=== PATIENT | male | born 1945 | race Caucasian/White ===

== ENCOUNTER 2018-08-31 13:53 | Inpatient (IN) ==
[2018-08-31 14:38] LABS: Baso % (Auto) 0.3 % (0.0-2.0); Eos % (Auto) 0.1 % (0.0-4.0); Hemoglobin 15.4 gm/dL (13.0-17.0); Lymph # (Auto) 0.9 th/mm3 (1.0-4.8); Lymph % (Auto) 9.1 % (9.0-44.0); Mean Corpuscular HGB Conc 35.8 % (32.0-36.0); Mean Corpuscular Hemoglobin 34.4 pg (27.0-34.0); Mean Corpuscular Volume 96.1 fL (80.0-100.0); Mean Platelet Volume 8.1 fL (7.0-11.0); Mono # (Auto) 1.2 th/mm3 (0.0-0.9); Mono % (Auto) 11.9 % (0.0-8.0); Neut # (Auto) 7.7 th/mm3 (1.8-7.7); Neut % (Auto) 78.6 % (16.0-70.0); Platelet Count 212 th/mm3 (150-450); Red Blood Count 4.48 mil/mm3 (4.50-5.90); Red Cell Distribution Width 12.5 % (11.6-17.2); White Blood Count 9.8 th/mm3 (4.0-11.0)
--- NOTE | 2018-08-31 14:45 | ED ---
HPI General Chief Complaint: Extremity Injury, Lower Stated Complaint: hip pain Time Seen by Provider: 08/31/18 13:59 Source: patient and EMS Mode of arrival: EMS Limitations: no limitations History of Present Illness HPI Narrative: 72-year-old male the presents to the ED for evaluation of fall and pain on the right hip as well as on the right elbow after he had a fall 2 days ago. Per patient he has not been able to get up on his own and this is what concerned him. Apparently 1 of his friends did help him into his house and he has been on a couch since. He denies any chest pain or shortness of breath. He states that he did not hit his head or lose consciousness. Denies take any blood thinners. No urinary bowel movement issues. He states that the main reason he came today is because his friend recommended that he comes here because he cannot walk. No previous injuries. Only history is high blood pressure. Has not eaten anything in 2 days per patient. States that his pain currently is 2 out of 10 but if he moves especially his hip he gets 10 out of 10 pain. He cannot put weight on his hip. Denies any back pain or neck pain. Patient is was a mechanical fall. Per patient he tripped and fell into his right side. He denies losing consciousness. Related Data Allergies Allergy/AdvReac Type Severity Reaction Status Date / Time No Known Allergies Allergy Verified 08/31/18 14:08 Review of Systems ROS: all other systems reviewed are negative [facility] Medical History Medical History GERD (gastroesophageal reflux disease) (Acute) HTN (hypertension) (Acute) Surgical History Surgical History History of right knee surgery (Acute) Social History Social History Substance History: No History of Abuse Smoking Status: Current every day smoker Tobacco Type: Cigarettes How Often Do You Have a Drink Containing Alcohol: 2 to 4 times a month Recent Travel in [facility] within the Last 8 Weeks: No Recent Out of Country Travel within the Last 8 Weeks: No Immunization History Tetanus Immunization: <5 Years Exam Narrative Exam Narrative: GENERAL: Well appearing SKIN: Focused skin assessment warm/dry. HEAD: Atraumatic. Normocephalic. EYES: Pupils equal and round. No scleral icterus. No injection or drainage. ENT: No nasal bleeding or discharge. Mucous membranes pink and moist. Tongue is midline. No uvula deviation. NECK: Trachea midline. No JVD. CARDIOVASCULAR: Regular rate and rhythm. No murmur appreciated. RESPIRATORY: No accessory muscle use. Clear to auscultation. Breath sounds equal bilaterally. GASTROINTESTINAL: Abdomen soft, non-tender, nondistended. Hepatic and splenic margins not palpable. MUSCULOSKELETAL: No obvious deformities. No clubbing. No cyanosis. No edema. Full range of motion of all extremities. Patient does have pain and swelling noted on the right elbow and olecranon area. Bruising noted. 2+ pulses bilaterally in the upper and lower extremities bilaterally. No lumbar, thoracic , cervical spine tenderness to palpation pain or rib pain. Scapular pain. No hip pain other than on the right hip where patient has pain with any movement of the right hip especially with weightbearing. Sensation intact bilaterally. NEUROLOGICAL: Awake and alert. No obvious cranial nerve deficits. Motor grossly within normal limits. Normal speech. PSYCHIATRIC: Appropriate mood and affect; insight and judgment normal. Course Initial Documented Vital Signs Temperature 98.4 F 08/31/18 14:02 Pulse Rate 87 08/31/18 14:02 Respiratory Rate 20 08/31/18 14:02 Blood Pressure 135/82 08/31/18 14:02 Pulse Oximetry 93 L 08/31/18 14:02 Last Documented Vital Signs Temperature 98.4 F 08/31/18 14:02 Pulse Rate 87 08/31/18 14:02 Respiratory Rate 20 08/31/18 14:02 Blood Pressure 135/82 08/31/18 14:02 Pulse Oximetry 93 L 08/31/18 14:02 Medical Decision Making [facility] Narrative Medical decision making narrative: 72-year-old male who presents to the ED for a fall. Patient was properly examined and was found to have signs and symptoms consistent with appears to be fractures. X-rays and labs ordered. X-rays and labs were positive for what appears to be acetabulum fracture as well as right elbow fracture. Case discussed with my attending who agrees with plan. Case discussed with Dr. Bright who wants patient admitted to medicine, CT of the hip and splint for the right elbow. Patient will have surgery on his right elbow and possibly on his hip only if the CT shows significant injury. Patient might not have surgery on his hip but depends on what the CT shows. Labs and preop work was ordered. Patient was admitted to Dr. Castro who agrees to admission. Medical Screen Exam Complete: Yes Emergency Medical Condition: Yes Differential Diagnosis Differential Diagnosis: Fracture versus bruise versus contusion Medical Records Medical records reviewed: Yes I reviewed the patient's medical records. Lab Data Lab results reviewed: Yes I reviewed the patient's lab results. Result diagrams: 08/31/18 14:11 08/31/18 14:11 Lab Results 08/31/18 08/31/18 08/31/18 Range/Units 14:11 14:11 14:11 WBC 9.8 (4.0-11.0) th/mm3 RBC 4.48 L (4.50-5.90) mil/mm3 Hgb 15.4 (13.0-17.0) gm/dL Hct 43.0 (39.0-51.0) % MCV 96.1 (80.0-100.0) fL MCH 34.4 H (27.0-34.0) pg MCHC 35.8 (32.0-36.0) % RDW 12.5 (11.6-17.2) % Plt Count 212 (150-450) th/mm3 MPV 8.1 (7.0-11.0) fL Neut % (Auto) 78.6 H (16.0-70.0) % Lymph % (Auto) 9.1 (9.0-44.0) % Griggs % (Auto) 11.9 H (0.0-8.0) % Eos % (Auto) 0.1 (0.0-4.0) % Baso % (Auto) 0.3 (0.0-2.0) % Neut # (Auto) 7.7 (1.8-7.7) th/mm3 Lymph # (Auto) 0.9 L (1.0-4.8) th/mm3 Griggs # (Auto) 1.2 H (0.0-0.9) th/mm3 Eos # (Auto) 0.0 (0.0-0.4) th/mm3 Baso # (Auto) 0.0 (0.0-0.2) th/mm3 WBC Differential . Differential Comment Auto diff final PT 11.1 (9.8-11.6) sec INR 1.1 Ratio APTT 28.5 (24.3-30.1) sec Sodium 129 L (136-145) meq/L Potassium 3.8 (3.5-5.1) meq/L Chloride 89 L (98-107) meq/L Carbon Dioxide 29.3 (21.0-32.0) meq/L Anion Gap 11 (5-15) meq/L BUN 13 (7-18) mg/dL Creatinine 0.95 (0.60-1.30) mg/dL Estimated GFR 78 L (>89) mL/min Random Glucose 124 H (74-106) mg/dL Calcium 8.3 L (8.5-10.1) mg/dL Imaging Data Attestation: I personally reviewed and interpreted this imaging study as follows : Radiologist's impression: Elbow X-Ray 08/31/18 14:00 CONCLUSION: Avulsion fracture of the posterior olecranon Femur X-Ray 08/31/18 14:00 CONCLUSION: See the hip reported separately. The femur is intact. Hip X-Ray 08/31/18 14:00 CONCLUSION: Acute acetabular fracture with acetabular protrusio. Discharge Plan Discharge Disposition Patient Disposition: 30 Still Patient Discharge Details Diagnosis: Closed olecranon fracture, Acetabulum fracture Physicians Team ED Provider: Triston Durant ED Midlevel Provider: Nelson Hopper Primary Care Provider: Jewell Chance Status ED Status: Admitted Patient
--- NOTE | 2018-08-31 15:00 | XR ---
EXAM DATE: 08/31/2018 2:00 PM EDT AGE/SEX: 72 years / Male INDICATIONS: Fell yesterday. CLINICAL DATA: This is the patient's initial encounter. Patient reports that signs and symptoms have been present for 1 day and indicates a pain score of 7/10. MEDICAL/SURGICAL HISTORY: . none known poor historian . none known poor historian COMPARISON: No prior exams available for comparison. FINDINGS: Views of the right elbow demonstrates displaced olecranon fracture with a gap in between the fracture fragments of 15 mm. Large joint effusion and soft tissue swelling CONCLUSION: Avulsion fracture of the posterior olecranon Electronically signed by: Josafat East MD 08/31/2018 2:59 PM EDT
--- NOTE | 2018-08-31 15:05 | XR ---
EXAM DATE: 08/31/2018 2:00 PM EDT AGE/SEX: 72 years / Male INDICATIONS: Fell yesterday. CLINICAL DATA: This is the patient's initial encounter. Patient reports that signs and symptoms have been present for 1 day and indicates a pain score of 7/10. MEDICAL/SURGICAL HISTORY: . none known poor historian . none known poor historian COMPARISON: No prior exams available for comparison. FINDINGS: 3 views of the pelvis and right hip reveal an acute fracture involving the acetabulum with acetabular protrusio. Femoral neck and head are intact. Femoral head remains within the acetabulum. Atheroscler otic calcifications are noted. Underlying osteopenia noted. CONCLUSION: Acute acetabular fracture with acetabular protrusio. Electronically signed by: Daniele Zamudio MD 08/31/2018 3:04 PM EDT
--- NOTE | 2018-08-31 15:08 | XR ---
EXAM DATE: 08/31/2018 2:00 PM EDT AGE/SEX: 72 years / Male INDICATIONS: Fell yesterday. CLINICAL DATA: This is the patient's initial encounter. Patient reports that signs and symptoms have been present for 1 day and indicates a pain score of 7/10. MEDICAL/SURGICAL HISTORY: . none known poor historian . poor historian COMPARISON: [facility] [place], HIP RIGHT W AP PELVIS 2V, 08/31/2018. . FINDINGS: See the right hip reported separately. The femur is intact and in normal alignment. Osseous density i s normal. Soft tissues are unremarkable. Atherosclerotic calcifications. Osteoarthritis involving th e knee. No radiopaque foreign bodies seen. CONCLUSION: See the hip reported separately. The femur is intact. Electronically signed by: Daniele Zamudio MD 08/31/2018 3:06 PM EDT
[2018-08-31 15:11] LABS: Calcium 8.3 mg/dL (8.5-10.1); Carbon Dioxide 29.3 meq/L (21.0-32.0); Potassium 3.8 meq/L (3.5-5.1)
[2018-08-31 15:25] LABS: Activated Partial Thrombo Time 28.5 sec (24.3-30.1); INR 1.1 Ratio; Prothrombin Time 11.1 sec (9.8-11.6)
[2018-08-31] MEDS ORDERED: Morphine Inj 4 MG/ML Vial IV.PUSH ONE (15:40)
[2018-08-31] MEDS ORDERED: Morphine Inj 4 MG/ML Vial IV.PUSH PRN (15:43)
[2018-08-31] MEDS ORDERED: Naloxone Inj 0.4 MG/ML Vial IV.PUSH PRN (15:43)
[2018-08-31] MEDS ORDERED: Acetaminophen 325 MG Tablet PO PRN (15:43)
[2018-08-31] MEDS ORDERED: Morphine Sulfate Inj 2 MG/ML Vial IV.PUSH PRN (15:43)
[2018-08-31] MEDS ORDERED: Bisacodyl 10 MG Supp RECTAL PRN (15:43)
--- NOTE | 2018-08-31 16:16 | XR ---
EXAM DATE: 08/31/2018 3:30 PM EDT AGE/SEX: 72 years / Male INDICATIONS: Evaluate for pneumonia, pneumothorax, or communicable diseases. CLINICAL DATA: This is the patient's initial encounter. Patient reports that signs and symptoms have been present for 1 day and indicates a pain score of 0/10. MEDICAL/SURGICAL HISTORY: None. None. COMPARISON: No prior exams available for comparison. FINDINGS: 2 frontal views of the chest demonstrate the lungs to be symmetrically aerated without evidence of ma ss, infiltrate or effusion. The lungs are hyperaerated. The cardiomediastinal contours are unremarka ble. Scoliotic curvature. Osseous structures are intact. CONCLUSION: The lungs are hyperinflated consistent with COPD. No acute infiltrate or effusion. Electronically signed by: Daniele Zamudio MD 08/31/2018 4:15 PM EDT
--- NOTE | 2018-08-31 16:36 | P.HPIM ---
History of Present Illness Primary Care Physician: Jewell Chance MD Chief Complaint: I fell with right hip and elbow pain History of Present Illness: 72-year-old white male with a history of hypertension, GERD presents to the emergency room due to difficulty ambulating since his fall 2 days ago. Apparently he was walking outside in a joan of wind caused him to lose his balance and falling to his right side. He states that he did not hit his head nor lose consciousness. Since the fall, he had significant pain over his right elbow and right hip. Due to the fact that he continues to have a difficult time ambulating and having intractable pain, his friend brought him to emergency room today. He reports no complaints of chest pain shortness of breath. He does not struggle with constipation. He does report chronic runny nose. He has been told by his primary care physician in the past that he may have early stages of COPD however he does not use an inhaler. - Diagnosis (1) Acetabulum fracture (2) Fracture, olecranon Inpatient Certification: I certify that the inpatient services were ordered in accordance with Medicare regulations governing the order. This includes certification that hospital inpatient services are reasonable and necessary and in the case of services not specified as inpatient-only under 42 CFR 419.22(n), that they are appropriately provided as inpatient services in accordance to with the 2-midnight benchmark under 43 CFR 412.3(e) Estimated Total Length of Stay (Days): 3 Plans for Post Hospital Care: SNF Review of Systems All other systems reviewed negative except as stated in HPI PMFSH - History History Provided By: Patient, Dental Technologist / EMT - Medical History Medical History: Medical History (Last Reviewed 08/31/18 @ 17:18 by Florida Castro MD) GERD (gastroesophageal reflux disease) HTN (hypertension) - Surgical History Surgical History: Surgical History (Last Updated 08/31/18 @ 17:20 by Florida Castro MD) History of ankle surgery History of right knee surgery - Family History Family History: Family History (Last Updated 08/31/18 @ 17:20 by Florida Castro MD) Other Family history unknown - Social History I have reviewed the patient's Social History: Yes - Tobacco History Tobacco Use In Past 30 Days: Yes Smoking Status: Current every day smoker Tobacco Type: Cigarettes - Alcohol History How Often Do You Have a Drink Containing Alcohol: 2 to 4 times a month - Substance Use History Substance History: No History of Abuse - Travel History Recent Travel in the [place] Within the Last 8 Weeks: No Recent Travel Out of the Country Within the Last 8 Weeks: No - Immunization History Tetanus Immunization: <5 Years Medications and Allergies Active Medications: Active Medications Acetaminophen (Tylenol) 650 mg PO Q6HR PRN PRN Reason: PAIN SCALE 1 TO 2 Hydrocodone Bitart/Acetaminophen (Fowler 5/325) 1 tab PO Q4H PRN PRN Reason: PAIN SCALE 3 TO 5 Hydrocodone Bitart/Acetaminophen (Fowler 7.5/325) 1 tab PO Q4H PRN PRN Reason: PAIN SCALE 6 TO 10 Al Hydroxide/Mg Hydroxide (Milk Of Magnesia Liq) 30 ml PO Q12H PRN PRN Reason: Mild Constipation Amlodipine Besylate (Norvasc) 5 mg PO DAILY CARLOS Bisacodyl (Dulcolax Supp) 10 mg RECTAL DAILY PRN PRN Reason: SEVERE CONSITIPATION Calcium/Vitamin D (Oscal With D 250/125 Mg) 1 tab PO BID [facility] Enalaprilat (Vasotec Inj) 1.25 mg IV.PUSH Q6H PRN PRN Reason: SEE LABEL COMMENTS Lactated Ringer's (Lr 1000 Ml Inj) 1,000 mls @ 70 mls/hr IV.CONT .[id number] CARLOS Lactulose (Lactulose Liq) 30 ml PO DAILY PRN PRN Reason: SEVERE CONSITIPATION Metoprolol Tartrate (Lopressor) 25 mg PO BID [facility] Morphine Sulfate (Morphine Inj) 4 mg IV.PUSH Q3H PRN PRN Reason: PAIN 6-10;IF UNABLE TO TAKE PO Morphine Sulfate (Morphine Inj) 2 mg IV.PUSH Q3H PRN PRN Reason: PAIN 3-5; IF UABLE TO TAKE PO Naloxone HCl (Narcan Inj) 0.4 mg IV.PUSH UNSCH PRN PRN Reason: SEE LABEL COMMENTS Non-Formulary Medication (Omeprazole [Omeprazole]) 20 mg PO DAILY [facility] Ondansetron HCl (Zofran Inj) 4 mg IV.PUSH Q6H PRN PRN Reason: NAUSEA OR VOMITING Senna/Docusate Sodium (Angela-Colace) 1 tab PO BID [facility] Sennosides (Senokot) 17.2 mg PO Q12H PRN PRN Reason: Moderate Constipation Allergies Allergy/AdvReac Type Severity Reaction Status Date / Time No Known Allergies Allergy Verified 08/31/18 14:08 Home Medications Medication Instructions Recorded Confirmed Type amlodipine 5 mg PO DAILY 08/31/18 08/31/18 History metoprolol tartrate 25 mg PO BID 08/31/18 08/31/18 History omeprazole 20 mg PO DAILY 08/31/18 08/31/18 History Exam Vital signs: Vital Signs 08/31/18 14:02 Temperature 98.4 F Pulse Rate 87 Respiratory Rate 20 Blood Pressure 135/82 Pulse Oximetry 93 L Intake & Output 08/30/18 08/31/18 08/31/18 18:59 06:59 18:59 Weight 68.039 kg Narrative: GENERAL: Well-nourished well-developed white male no acute distress SKIN: Warm and dry. HEAD: Atraumatic. Normocephalic. EYES: Pupils equal and round. No scleral icterus. No injection or drainage. ENT: No nasal bleeding or discharge. Mucous membranes pink and moist. NECK: Trachea midline. No JVD. CARDIOVASCULAR: Regular rate and rhythm. RESPIRATORY: No accessory muscle use. Clear to auscultation. Breath sounds equal bilaterally. GASTROINTESTINAL: Abdomen soft, non-tender, nondistended. Hepatic and splenic margins not palpable. MUSCULOSKELETAL: Extremities without clubbing, cyanosis, with trace bilateral ankle edema, right upper arm stabilized in the splint with bandage clean dry and intact. NEUROLOGICAL: Awake and alert. No obvious cranial nerve deficits. Motor grossly within normal limits. Normal speech. PSYCHIATRIC: Appropriate mood and affect; insight and judgment normal. Results - Labs CBC & Chem 7: 09/02/18 06:53 09/02/18 06:53 Labs: Short CBC 08/31/18 Range/Units 14:11 WBC 9.8 (4.0-11.0) th/mm3 Hgb 15.4 (13.0-17.0) gm/dL Hct 43.0 (39.0-51.0) % Plt Count 212 (150-450) th/mm3 BMP 08/31/18 14:11 Sodium 129 L Potassium 3.8 Chloride 89 L Carbon Dioxide 29.3 BUN 13 Creatinine 0.95 Calcium 8.3 L - Imaging Impressions Elbow X-Ray 08/31/18 14:00 CONCLUSION: Avulsion fracture of the posterior olecranon Femur X-Ray 08/31/18 14:00 CONCLUSION: See the hip reported separately. The femur is intact. Hip X-Ray 08/31/18 14:00 CONCLUSION: Acute acetabular fracture with acetabular protrusio. Chest X-Ray 08/31/18 15:30 CONCLUSION: The lungs are hyperinflated consistent with COPD. No acute infiltrate or effusion. - ECG Attestation: I personally reviewed and interpreted this ECG as follows: Prior ECG tracings: not available for review Interpretation: Normal sinus rhythm with few PVC with heart rate Caprini VTE Risk Assessment Caprini VTE Risk Assessment: Moderate/High Risk (score >= 2) Caprini Risk Assessment Model: Point Value = 1 Point Value = 2 Point Value = 3 Point Value = 5 Age 41-60 Minor surgery BMI > 25 kg/m2 Swollen legs Varicose veins or History of unexplained or recurrent spontaneous Oral contraceptives or hormone replacement Sepsis (< 1 month) Serious lung disease, including pneumonia (< 1 month) Abnormal pulmonary function Acute myocardial infarction Congestive heart failure (< 1 month) History of inflammatory bowel disease Medical patient at bed rest Age 61-74 Arthroscopic surgery Major open surgery (> 45 min) Laparoscopic surgery (> 45 min) Malignancy Confined to bed (> 72 hours) Immobilizing plaster cast Central venous access Age >= 75 History of VTE Family history of VTE Factor V Leiden Prothrombin [id number] Lupus anticoagulant Anticardiolipin antibodies Elevated serum homocysteine Heparin-induced thrombocytopenia Other congenital or acquired thrombophilia Stroke (< 1 month) Elective arthroplasty Hip, pelvis, or leg fracture Acute spinal cord injury (< 1 month) Prophylaxis Regimen: Total Risk Factor Score Risk Level Prophylaxis Regimen 0-1 Low Early ambulation 2 Moderate Order ONE of the following: *Sequential Compression Device (SCD) *Heparin 5000 units SQ BID 3-4 Higher Order ONE of the following medications: *Heparin 5000 units SQ TID *Enoxaparin/Lovenox 40 mg SQ daily (WT < 150 kg, CrCl > 30 mL/min) *Enoxaparin/Lovenox 30 mg SQ daily (WT < 150 kg, CrCl > 10-29 mL/min) *Enoxaparin/Lovenox 30 mg SQ BID (WT < 150 kg, CrCl > 30 mL/min) AND/OR *Sequential Compression Device (SCD) 5 or more Highest Order ONE of the following medications: *Heparin 5000 units SQ TID (Preferred with Epidurals) *Enoxaparin/Lovenox 40 mg SQ daily (WT < 150 kg, CrCl > 30 mL/min) *Enoxaparin/Lovenox 30 mg SQ daily (WT < 150 kg, CrCl > 10-29 mL/min) *Enoxaparin/Lovenox 30 mg SQ BID (WT < 150 kg, CrCl > 30 mL/min) AND *Sequential Compression Device (SCD) Assessment and Plan - Assessment (1) Acetabulum fracture Code(s): S32.409A - Unspecified fracture of unspecified acetabulum, initial encounter for closed fracture Status: Acute (2) Fracture, olecranon Code(s): S52.023A - Displaced fracture of olecranon process without intraarticular extension of unspecified ulna, initial encounter for closed fracture Status: Acute - Plan 72-year-old white male with a history of hypertension and GERD presents after mechanical fall 1. Right displaced olecranon closed fracture-orthopedic consult for likely surgical intervention. N.p.o. after midnight. Continue with IV morphine as needed for pain. Start Os-Fam with vitamin D for presumed osteoporosis 2. Right acetabular fractureorthopedic consultation, likely nonsurgical; activity level as per orthopedic surgery with physical therapy. 3. Hypertension, essential chronicresume home Norvasc 4. GERDresume home PPI 5. DVT prophylaxisbilateral SCDs, anticoagulation on hold due to likely surgical intervention. 6. Tobacco abuse with probable early COPD-cessation counseling, encourage incentive spirometry use, DuoNeb as needed.
--- NOTE | 2018-08-31 16:45 | CT ---
EXAM DATE: 08/31/2018 3:47 PM EDT AGE/SEX: 72 years / Male INDICATIONS: Trauma; fall, right hip pain, difficulty ambulating. CLINICAL DATA: This is the patient's initial encounter. Patient reports that signs and symptoms have been present for 1 day and indicates a pain score of 9/10. MEDICAL/SURGICAL HISTORY: Hypertension. None. RADIATION DOSE: 24.24 CTDI (mGy) COMPARISON: No prior exams available for comparison. TECHNIQUE: Multiple contiguous axial images were acquired using a multirow detector CT scanner witho ut contrast. Multiplanar reconstruction was performed in the sagittal and coronal planes. Using aut omated exposure control and adjustment of the mA and/or kV according to patient size, radiation dose was kept as low as reasonably achievable to obtain optimal diagnostic quality images. DICOM format i mage data is available electronically for review and comparison. FINDINGS: An acute comminuted fractures seen involving the anterior aspect of the acetabulum with resulting la tabular protrusio. The femoral head and neck are intact. There is stranding of the fat planes within the right hemipelvis and within the presacral space consistent with small volume hemorrhage. Small vo lume hemarthrosis also noted. A degenerative lower lumbar spine. . Calcified plaque involving the low er abdominal aorta and inflow vessels. Bowel structures are unremarkable. CONCLUSION: 1. Comminuted acetabular fracture with acetabular protrusio, small volume hemarthrosis, and small vo lume hemorrhage within the pelvis. Electronically signed by: Daniele Zamudio MD 08/31/2018 4:43 PM EDT
--- NOTE | 2018-08-31 20:04 | ECG ---
Date Performed: 08/31/2018 Time Performed: 15:58:41 PTAGE: 72 years EKG: Sinus rhythm WITH OCCASIONAL SUPRAVENTRICULAR PREMATURE COMPLEXES NONSPECIFIC ST ABNORMALITY ABNORMAL ECG NO PREVIOUS TRACING DOCTOR: Gregory Esteves Interpretating Date/Time 08/31/2018 20:02:42
[2018-08-31] MEDS: Metoprolol Tartrate 25 MG Tablet PO SCH (21:54)
[2018-08-31] MEDS: Senna/Docusate Sodium 8.6/50 MG Tablet PO SCH (21:55)
[2018-08-31] MEDS: Calcium/Vitamin D 250/125 MG Tablet PO SCH (21:55)
[2018-09-01] MEDS ORDERED: Chlorhexidine Gluconate 2% 1 Pack (2 Cloths) TOPICAL ONE (02:46)
[2018-09-01] MEDS ORDERED: Metoprolol Tartrate 25 MG Tablet PO ONE (02:46)
[2018-09-01] MEDS ORDERED: Sodium Chlor 0.9% Inj 500 ML IV.SIG SCH (03:00)
[2018-09-01] MEDS: Metoprolol Tartrate 25 MG Tablet PO SCH ×2 (08:10→20:11)
[2018-09-01] MEDS: Pantoprazole Sodium 20 MG DR Tablet PO SCH (08:10)
[2018-09-01] MEDS: amLODIPine 5 MG Tablet PO SCH (08:10)
[2018-09-01] MEDS: Senna/Docusate Sodium 8.6/50 MG Tablet PO SCH ×2 (08:19→20:13)
[2018-09-01] MEDS: Calcium/Vitamin D 250/125 MG Tablet PO SCH ×2 (08:19→20:11)
--- NOTE | 2018-09-01 08:37 | P.CONOP ---
[facility] Orthopedics Consult Note - [facility] Consult date: 09/01/18 Requesting physician: Florida Castro Consult reason: fracture Chief complaint: right acetabular fracture, right acetabulum Narrative: 72-year-old white male with a history of hypertension, GERD presents to the emergency room due to difficulty ambulating since his fall 2 days ago. Apparently he was walking outside in a joan of wind caused him to lose his balance and falling to his right side. He states that he did not hit his head nor lose consciousness. Since the fall, he had significant pain over his right elbow and right hip. Due to the fact that he continues to have a difficult time ambulating and having intractable pain, his friend brought him to emergency room today. He reports no complaints of chest pain shortness of breath. He does not struggle with constipation. He does report chronic runny nose. He has been told by his primary care physician in the past that he may have early stages of COPD however he does not use an inhaler. X-ray and CT of the pelvis shows evidence of an impacted bicondylar acetabular fracture which is predominantly a central dye punch with fairly stable anterior and posterior column. This has the appearance of protrusio which is rated as mild. X-ray of the right elbow shows evidence of a displaced two-part olecranon fracture. I have been asked to see the patient in consultation regarding the same Review of Systems All other systems reviewed negative except as stated in [facility] PMF[facility] - History History Provided By: Patient - Medical History Medical History: Medical History (Last Reviewed 08/31/18 @ 17:18 by Florida Castro MD) GERD (gastroesophageal reflux disease) HTN (hypertension) - Surgical History Surgical History: Surgical History (Last Updated 08/31/18 @ 17:20 by Florida Castro MD) History of ankle surgery History of right knee surgery - Family History Family History: Family History (Last Updated 08/31/18 @ 17:20 by Florida Castro MD) Other Family history unknown - Tobacco History Second Hand Smoke Exposure: No Tobacco Use In Past 30 Days: Yes Smoking Status: Current some day smoker Tobacco Type: Cigarettes - Alcohol History How Often Do You Have a Drink Containing Alcohol: 2 to 3 times a week - Substance Use History Substance History: No History of Abuse - Travel History Recent Travel in the [place] Within the Last 8 Weeks: No Recent Travel Out of the Country Within the Last 8 Weeks: No - Immunization History Tetanus Immunization: <5 Years Hx Influenza Vaccine This Season: No Medications and Allergies Active Medications: Active Medications Acetaminophen (Tylenol) 650 mg PO Q6HR PRN PRN Reason: PAIN SCALE 1 TO 2 Hydrocodone Bitart/Acetaminophen (Waterproof 5/325) 1 tab PO Q4H PRN PRN Reason: PAIN SCALE 3 TO 5 Last Admin: 09/01/18 02:35 Dose: 1 tab Hydrocodone Bitart/Acetaminophen (Waterproof 7.5/325) 1 tab PO Q4H PRN PRN Reason: PAIN SCALE 6 TO 10 Al Hydroxide/Mg Hydroxide (Milk Of Magnesia Liq) 30 ml PO Q12H PRN PRN Reason: Mild Constipation Albuterol (Duoneb Neb (Prn)) 1 ampul NEB Q4HR NEB PRN PRN Reason: sob Amlodipine Besylate (Norvasc) 5 mg PO DAILY COUNTS INCLUDE 234 BEDS AT THE [facility] Last Admin: 09/01/18 08:10 Dose: 5 mg Bisacodyl (Dulcolax Supp) 10 mg RECTAL DAILY PRN PRN Reason: SEVERE CONSITIPATION Calcium/Vitamin D (Oscal With D 250/125 Mg) 1 tab PO BID COUNTS INCLUDE 234 BEDS AT THE [facility] Last Admin: 09/01/18 08:19 Dose: Not Given Enalaprilat (Vasotec Inj) 1.25 mg IV.PUSH Q6H PRN PRN Reason: SEE LABEL COMMENTS Lactated Ringer's (Lr 1000 Ml Inj) 1,000 mls @ 70 mls/hr IV.CONT .[id number] COUNTS INCLUDE 234 BEDS AT THE [facility] Last Admin: 08/31/18 17:10 Dose: 70 mls/hr Lactated Ringer's (Lr 1000 Ml Inj) 1,000 mls @ 30 mls/hr IV.SIG .Q24H COUNTS INCLUDE 234 BEDS AT THE [facility] Stop: 09/02/18 02:59 Sodium Chloride (Ns Inj) 500 mls @ 30 mls/hr IV.SIG .Q10H COUNTS INCLUDE 234 BEDS AT THE [facility] Influenza Virus Vaccine (Fluarix (Quad) Vaccine Inj) 0.5 ml IM .ONCE ONE Stop: 09/01/18 09:01 Lactulose (Lactulose Liq) 30 ml PO DAILY PRN PRN Reason: SEVERE CONSITIPATION Metoprolol Tartrate (Lopressor) 25 mg PO BID COUNTS INCLUDE 234 BEDS AT THE [facility] Last Admin: 09/01/18 08:10 Dose: 25 mg Morphine Sulfate (Morphine Inj) 4 mg IV.PUSH Q3H PRN PRN Reason: PAIN 6-10;IF UNABLE TO TAKE PO Morphine Sulfate (Morphine Inj) 2 mg IV.PUSH Q3H PRN PRN Reason: PAIN 3-5; IF UABLE TO TAKE PO Naloxone HCl (Narcan Inj) 0.4 mg IV.PUSH UNSCH PRN PRN Reason: SEE LABEL COMMENTS Ondansetron HCl (Zofran Inj) 4 mg IV.PUSH Q6H PRN PRN Reason: NAUSEA OR VOMITING Pantoprazole Sodium (Protonix) 20 mg PO DAILY COUNTS INCLUDE 234 BEDS AT THE [facility] Last Admin: 09/01/18 08:10 Dose: 20 mg Senna/Docusate Sodium (Angela-Colace) 1 tab PO BID COUNTS INCLUDE 234 BEDS AT THE [facility] Last Admin: 09/01/18 08:19 Dose: Not Given Sennosides (Senokot) 17.2 mg PO Q12H PRN PRN Reason: Moderate Constipation Allergies Allergy/AdvReac Type Severity Reaction Status Date / Time No Known Allergies Allergy Verified 08/31/18 14:08 Home Medications Medication Instructions Recorded Confirmed Type amlodipine 5 mg PO DAILY 08/31/18 08/31/18 History metoprolol tartrate 25 mg PO BID 08/31/18 08/31/18 History omeprazole 20 mg PO DAILY 08/31/18 08/31/18 History Exam Vital signs: Vital Signs 08/31/18 14:02 08/31/18 16:43 08/31/18 16:44 Temperature 98.4 F Pulse Rate 87 88 Respiratory Rate 20 18 Blood Pressure 135/82 112/75 Pulse Oximetry 93 L 95 95 08/31/18 20:00 09/01/18 00:00 09/01/18 01:30 Temperature 97.9 F 98.3 F Pulse Rate 91 H 96 H Respiratory Rate 18 20 17 Blood Pressure 124/71 114/74 Pulse Oximetry 94 L 93 L 09/01/18 04:00 09/01/18 08:00 09/01/18 08:10 Temperature 98.1 F 98.0 F Pulse Rate 87 91 H Respiratory Rate 20 18 Blood Pressure 119/66 126/62 Pulse Oximetry 93 L 92 L 92 L Intake & Output 08/31/18 09/01/18 09/01/18 18:59 06:59 18:59 Output Total 1450 / 1450 Balance -1450 / -1450 Weight 68.039 kg Output: Urine 1450 / 1450 Other: Date of Last Bowel Movement 08/30/18 Narrative: HEENT: Normocephalic atraumatic pupils equal round reactive. NECK: Supple. No abnormal masses. Full range of motion. CHEST: Clear to auscultation with no rales or rhonchi's or wheezes. HEART: Regular rate and rhythm. No murmurs. ABDOMEN: Soft, nontender, no masses. Normal active bowel sounds. GENITOURINARY: Deferred MUSCULOSKELETAL: The right elbow is in a long-arm splint. Sensation distally is normal. He wiggles his fingers. No obvious swelling. Right hip pain with range of motion. Minimal swelling. Normal alignment. Minimal shortening right leg compared to the left. No calf tenderness. Sensation distally is normal. Dorsalis pedis 1+. Extensor hallucis longus 5/5 Results - Labs Result Diagrams: 08/31/18 14:11 08/31/18 14:11 Labs: Laboratory Results - last 24 hr 08/31/18 08/31/18 08/31/18 14:11 14:11 14:11 WBC 9.8 RBC 4.48 L Hgb 15.4 Hct 43.0 MCV 96.1 MCH 34.4 H MCHC 35.8 RDW 12.5 Plt Count 212 MPV 8.1 Neut % (Auto) 78.6 H Lymph % (Auto) 9.1 [place] % (Auto) 11.9 H Eos % (Auto) 0.1 Baso % (Auto) 0.3 Neut # (Auto) 7.7 Lymph # (Auto) 0.9 L [place] # (Auto) 1.2 H Eos # (Auto) 0.0 Baso # (Auto) 0.0 WBC Differential . Differential Comment Auto diff final PT 11.1 INR 1.1 APTT 28.5 Sodium 129 L Potassium 3.8 Chloride 89 L Carbon Dioxide 29.3 Anion Gap 11 BUN 13 Creatinine 0.95 Estimated GFR 78 L Random Glucose 124 H Calcium 8.3 L - Diagnostic results Imaging: Impressions Elbow X-Ray 08/31/18 14:00 CONCLUSION: Avulsion fracture of the posterior olecranon My review shows evidence of any fracture of the olecranon with significant displacement, 2 part Femur X-Ray 08/31/18 14:00 CONCLUSION: See the hip reported separately. The femur is intact. X-ray of the hip shows evidence of an impacted type central dye punch fracture of the acetabulum which appears stable Hip X-Ray 08/31/18 14:00 CONCLUSION: Acute acetabular fracture with acetabular protrusio. Chest X-Ray 08/31/18 15:30 CONCLUSION: The lungs are hyperinflated consistent with COPD. No acute infiltrate or effusion. Hip CT 08/31/18 15:39 CONCLUSION: 1. Comminuted acetabular fracture with acetabular protrusio, small volume hemarthrosis, and small volume hemorrhage within the pelvis. The study shows a comminuted acetabular fracture with acetabular protrusio. There is a component that extends anterior and posterior columns without displacement Assessment and Plan - Assessment and Plan Right olecranon fracture, displaced. Right acetabular fracture, bicondylar, stable. PLAN: Nonsurgical treatment of his right hip fracture at this time. This patient may develop posttraumatic osteoarthritis of the hip requiring need for delayed total hip replacement. I would recommend nonoperative care at this time. If the both column component displaces, delayed internal fixation may be necessary. I doubt this will happen. Surgery: Open treatment internal fixation right olecranon fracture with plates and screws. Consent: There are risks with this injury and surgery to the elbow including infection, bleeding, loss of motion, continued pain, need for further surgery, neurologic or vascular injury. The patient understands these issues and wishes to proceed forward with surgery as outlined above
[2018-09-01] MEDS ORDERED: Influenza (Quadrivalent) Vaccine 0.5 ML Syringe IM ONE (09:00)
--- NOTE | 2018-09-01 09:41 | P.PN ---
Subjective Interval history: Follow up on patient with right olecranon fracture and right acetabular fracture. Patient seen and examined. patient complaining of pain in right elbow and right hip. He is NPO for surgery. He denies any fever or chills. He denies any chest pain or shortness of breath. He continues to smoke. He dose not use oxygen at home. He denies any nausea, vomiting or abdominal pain. Patient lives alone. Patient says for the last few years he has noticed a decline in his strength and has become more unsteady on his feet. Physical Exam Vital signs: Vital Signs 08/31/18 14:02 08/31/18 16:43 08/31/18 16:44 Temperature 98.4 F Pulse Rate 87 88 Respiratory Rate 20 18 Blood Pressure 135/82 112/75 Pulse Oximetry 93 L 95 95 08/31/18 20:00 09/01/18 00:00 09/01/18 01:30 Temperature 97.9 F 98.3 F Pulse Rate 91 H 96 H Respiratory Rate 18 20 17 Blood Pressure 124/71 114/74 Pulse Oximetry 94 L 93 L 09/01/18 04:00 09/01/18 08:00 09/01/18 08:10 Temperature 98.1 F 98.0 F Pulse Rate 87 91 H Respiratory Rate 20 18 Blood Pressure 119/66 126/62 Pulse Oximetry 93 L 92 L 92 L Intake & Output 08/31/18 09/01/18 09/01/18 18:59 06:59 18:59 Output Total 1450 / 1450 Balance -1450 / -1450 Weight 68.039 kg Output: Urine 1450 / 1450 Other: Date of Last Bowel Movement 08/30/18 Narrative: GENERAL: Well-nourished well-developed elderly male, in no acute distress. Appears uncomfortable. Awake and alert. SKIN: Warm and dry. HEAD: Atraumatic. Normocephalic. EYES: Pupils equal and round. No scleral icterus. No injection or drainage. ENT: No nasal bleeding or discharge. Mucous membranes pink and moist. NECK: Trachea midline. CARDIOVASCULAR: Regular rate and rhythm. RESPIRATORY: No accessory muscle use. Clear to auscultation. Breath sounds equal bilaterally. GASTROINTESTINAL: Abdomen soft, non-tender, nondistended. +BS. MUSCULOSKELETAL: Extremities without clubbing, cyanosis, with trace bilateral ankle edema, right upper arm stabilized in long arm splint with bandage clean dry and intact. NV intact distal RUE. NEUROLOGICAL: Awake and alert. No obvious cranial nerve deficits. Motor grossly within normal limits. Nonfocal. Normal speech. PSYCHIATRIC: Appropriate mood and affect; insight and judgment normal. Results - Labs CBC & Chem 7: 08/31/18 14:11 08/31/18 14:11 Laboratory Results - last 24 hr 08/31/18 08/31/18 08/31/18 14:11 14:11 14:11 WBC 9.8 RBC 4.48 L Hgb 15.4 Hct 43.0 MCV 96.1 MCH 34.4 H MCHC 35.8 RDW 12.5 Plt Count 212 MPV 8.1 Neut % (Auto) 78.6 H Lymph % (Auto) 9.1 [place] % (Auto) 11.9 H Eos % (Auto) 0.1 Baso % (Auto) 0.3 Neut # (Auto) 7.7 Lymph # (Auto) 0.9 L [place] # (Auto) 1.2 H Eos # (Auto) 0.0 Baso # (Auto) 0.0 WBC Differential . Differential Comment Auto diff final PT 11.1 INR 1.1 APTT 28.5 Sodium 129 L Potassium 3.8 Chloride 89 L Carbon Dioxide 29.3 Anion Gap 11 BUN 13 Creatinine 0.95 Estimated GFR 78 L Random Glucose 124 H Calcium 8.3 L - Imaging Impressions Elbow X-Ray 08/31/18 14:00 CONCLUSION: Avulsion fracture of the posterior olecranon Femur X-Ray 08/31/18 14:00 CONCLUSION: See the hip reported separately. The femur is intact. Hip X-Ray 08/31/18 14:00 CONCLUSION: Acute acetabular fracture with acetabular protrusio. Chest X-Ray 08/31/18 15:30 CONCLUSION: The lungs are hyperinflated consistent with COPD. No acute infiltrate or effusion. Hip CT 08/31/18 15:39 CONCLUSION: 1. Comminuted acetabular fracture with acetabular protrusio, small volume hemarthrosis, and small volume hemorrhage within the pelvis. Assessment and Plan - Assessment (1) Acetabulum fracture Code(s): S32.409A - Unspecified fracture of unspecified acetabulum, initial encounter for closed fracture Status: Acute (2) Fracture, olecranon Code(s): S52.023A - Displaced fracture of olecranon process without intraarticular extension of unspecified ulna, initial encounter for closed fracture Status: Acute - Plan 72-year-old white male with a history of hypertension and GERD presents after mechanical fall Right displaced olecranon closed fracture -Ortho following, appreciate assistance. Plan for ORIF today. -Keep NPO -Continue with IV morphine as needed for pain with bowel regimen -Started on Os-Fam with vitamin D for presumed osteoporosis, continue -obtain Vitamin D level Right acetabular fracture -Evaluated by Ortho service, nonoperative management at this time. Possibility of developing posttraumatic arthritis of the hip requiring delayed total hip replacement. -Wt bearing status per Ortho -Pt eval Hyponatremia -on IVF -repeat BMP ordered Hypertension, essential chronic -Continue on home dose of Norvasc and metoprolol -Continue to monitor BP adjust treatment accordingly GERD Continue on PPI Ongoing tobaccoism COPD, not in acute exacerbation CXR shows hyperinflated lungs c/w COPD, images reviewed by me -tobacco cessation -Duonebs as needed -IS.acapella use encouraged -monitor respiratory status DVT prophylaxis bilateral SCDs, anticoagulation on hold due to surgical intervention. Postop anticoagulation per orthopedic service. Code Status: Full Discussed Condition With: patient, nursing staff Discharge Planning: Not ready for discharge. Discharge pending Ortho clearance. CM consulted to assist with d/c planning, ?Ashok candidate
[2018-09-01] MEDS ORDERED: Glycopyrrolate Inj 1 MG/5 ML Syringe IV.PUSH ONE (10:22)
[2018-09-01] MEDS ORDERED: Neostigmine Inj 5 MG/5 ML Syringe IV.PUSH ONE (10:22)
[2018-09-01] MEDS ORDERED: Ketorolac Inj 30 MG/ML (IVP) Vial IV.PUSH ONE (10:22)
[2018-09-01] MEDS ORDERED: Phenylephrine/NS 1000 MCG/10ML Syringe IV.PUSH ONE (10:22)
[2018-09-01] MEDS ORDERED: Succinylcholine Inj 100 MG/5 ML Syringe IV.PUSH ONE (10:22)
[2018-09-01] MEDS ORDERED: ceFAZolin 2 GM Premix Inj 2 GM/50 ML PIGGYBACK IV.SIG ONE (10:26)
[2018-09-01] MEDS ORDERED: Post-op Orders (for Pharmacy) OTHER STA (12:00)
[2018-09-01] MEDS ORDERED: Temazepam 15 MG Capsule PO PRN (12:00)
--- NOTE | 2018-09-01 12:12 | P.OP ---
- Preoperative Diagnosis (1) Closed olecranon fracture Comment: Right - Postoperative Diagnosis (1) Closed olecranon fracture Comment: Right Date of procedure: 09/01/18 Procedure: Open treatment internal fixation right olecranon fracture with plate and screws Anesthesia: RODRICK Surgeon: Ruben Salazar MD User Interface Designer: CANDELARIA Lopes Operation and Findings: EBL: 25 cc INDICATION: This patient is a 72-year-old white male who fell sustaining a protrusio type fracture of the right acetabulum. He also has a displaced two- part olecranon fracture. He presents for surgical treatment. NOTE: Kimber Lopes PA-C was present for the entire surgical procedure as my production administrative assistant. In my medical opinion her skill and care was necessary for proper management of this patient. PROCEDURE: The patient was brought to the operating room and anesthetized in the supine position. The patient was rolled to a right side up lateral position and held with a beanbag. The arm was draped over a holding the bolster. A tourniquet was placed. The arm was scrubbed with alcohol followed by Hibiclens followed by ChloraPrep and draped sterilely. A timeout was done and antibiotics were given within a routine time window. After exsanguination the tourniquet was inflated to 250 mmHg. A posterior incision was made extending along the ulnar side of the olecranon. The fracture was exposed. Soft tissue dissection allowed good visualization. The fracture was curetted of hematoma and fracture callus. The fracture ends were brought into a reduced position and held with a clamp. A proper size Ja locking plate was positioned and held provisionally. A pin was used to hold this temporarily. Intraoperative x-ray confirmed anatomic alignment and position. A screw was placed distally first followed by placement of multiple locking screws within the plate. The fracture was held into a reduced position. Multiple locking screws were placed and screws along the shaft were placed. Intraoperative x-rays were obtained. The patient had excellent range of motion and what was felt to be excellent stability. No complication was appreciated. The wound was irrigated copiously with antibiotic irrigation. The deep fascia was approximated with interrupted #1 Vicryl suture. Skin and subcutaneous tissue was approximated with interrupted 3-0 nylon in a mattress fashion. A posterior splint and dressing was applied. The patient was awakened and taken to the recovery room in satisfactory condition. FINDINGS: There was a displaced fracture that was fairly stable once it was fixated. Excellent range of motion was noted. There is no complication appreciated. COMPANY: [employer]
[2018-09-01] MEDS ORDERED: fentaNYL Citrate Inj 100 MCG/2 ML Ampul ONE (12:31)
--- NOTE | 2018-09-01 15:47 | XR ---
EXAM DATE: 09/01/2018 12:00 AM EDT AGE/SEX: 72 years / Male INDICATIONS: Right elbow fracture. ORIF right elbow. CLINICAL DATA: This is the patient's initial encounter. Patient reports that signs and symptoms have been present for 1 day and indicates a pain score of Nonresponsive. MEDICAL/SURGICAL HISTORY: Non-responsive. Non-responsive. COMPARISON: No prior exams available for comparison. CONCLUSION: Fluoroscopic images during placement of plate and screws fixating olecranon. Electronically signed by: Josafat East MD 09/01/2018 3:46 PM EDT
[2018-09-01] MEDS: Multivitamin/Minerals Therapeutic Tablet PO SCH (20:11)
[2018-09-01 21:14] LABS: Calcium 7.6 mg/dL (8.5-10.1); Carbon Dioxide 28.2 meq/L (21.0-32.0); Potassium 3.9 meq/L (3.5-5.1)
[2018-09-02] MEDS: Enoxaparin Inj 30 MG/0.3 ML Syringe SQ SCH ×2 (00:40→23:44)
[2018-09-02 07:30] LABS: Baso % (Auto) 0.2 % (0.0-2.0); Eos % (Auto) 0.2 % (0.0-4.0); Hematocrit 37.4 % (39.0-51.0); Lymph # (Auto) 0.8 th/mm3 (1.0-4.8); Lymph % (Auto) 7.9 % (9.0-44.0); Mean Corpuscular HGB Conc 34.9 % (32.0-36.0); Mean Corpuscular Hemoglobin 33.9 pg (27.0-34.0); Mean Corpuscular Volume 97.2 fL (80.0-100.0); Mean Platelet Volume 8.2 fL (7.0-11.0); Mono # (Auto) 1.1 th/mm3 (0.0-0.9); Mono % (Auto) 10.6 % (0.0-8.0); Neut # (Auto) 8.2 th/mm3 (1.8-7.7); Neut % (Auto) 81.1 % (16.0-70.0); Platelet Count 166 th/mm3 (150-450); Red Blood Count 3.85 mil/mm3 (4.50-5.90); Red Cell Distribution Width 12.5 % (11.6-17.2); White Blood Count 10.1 th/mm3 (4.0-11.0)
[2018-09-02 07:49] LABS: Calcium 7.5 mg/dL (8.5-10.1); Carbon Dioxide 30.3 meq/L (21.0-32.0); Magnesium 1.3 mg/dL (1.5-2.5); Phosphorus 3.1 mg/dL (2.5-4.9)
[2018-09-02 07:50] LABS: Potassium 4.3 meq/L (3.5-5.1)
--- NOTE | 2018-09-02 07:51 | P.PNOP ---
Subjective Interval history: Comfortable postop day #1. No new pain or symptoms. Lying in bed Physical Exam Vital signs: Vital Signs 09/01/18 08:00 09/01/18 08:10 09/01/18 12:25 Temperature 98.0 F 97.5 F L Pulse Rate 91 H 55 L Respiratory Rate 18 22 Blood Pressure 126/62 76/47 L Pulse Oximetry 92 L 92 L 96 09/01/18 12:40 09/01/18 12:55 09/01/18 13:20 Temperature 97.8 F Pulse Rate 76 84 77 Respiratory Rate 18 18 20 Blood Pressure 97/53 L 108/57 L 96/55 L Pulse Oximetry 96 94 L 96 09/01/18 16:28 09/01/18 20:00 09/02/18 00:00 Temperature 98.0 F 97.5 F L 97.9 F Pulse Rate 89 82 70 Respiratory Rate 20 17 18 Blood Pressure 122/53 L 120/65 109/56 L Pulse Oximetry 90 L 92 L 92 L 09/02/18 04:00 Temperature 98.0 F Pulse Rate 67 Respiratory Rate 16 Blood Pressure 103/57 L Pulse Oximetry 93 L Intake & Output 09/01/18 09/02/18 09/02/18 18:59 06:59 18:59 Intake Total 1150 / 1150 1100 / 1100 Output Total 5 / 5 Balance 1145 / 1145 1100 / 1100 Intake: IV 1150 / 1150 1100 / 1100 LR 1000 mL Inj 1,000 ML @ 80 1000 / 1000 1000 / 1000 mls/hr IV.CONT .[id number] [facility] Rx# :[id number] Ancef 2 GM Premix Inj 2 gm In 50 / 50 50 ml @ 0 mls/hr IV.SIG .STK- [facility] Rx#:[id number] Ancef Inj 1,000 MG In NS Inj 100 / 100 100 / 100 100 ML @ 200 mls/hr IV.SIG Q6H [facility] Rx#:[id number] Output: Estimated Blood Loss 5 / 5 Other: # Voids 500 Date of Last Bowel Movement 08/30/18 08/30/18 Narrative: Right arm: Splint in place. Sensation normal. No abnormal swelling. Finger motion normal. Right hip: Pain with range of motion. Questionable shortening right leg versus left. Sensation distally normal. No calf tenderness Results - Labs CBC & Chem 7: 08/31/18 14:11 10/11/18 20:13 Laboratory Results - last 24 hr 09/01/18 20:13 Sodium 130 L Potassium 3.9 Chloride 93 L Carbon Dioxide 28.2 Anion Gap 9 BUN 14 Creatinine 1.17 Estimated GFR 61 L Random Glucose 182 H Calcium 7.6 L - Imaging Impressions Elbow X-Ray 09/01/18 00:00 CONCLUSION: Fluoroscopic images during placement of plate and screws fixating olecranon. Assessment and Plan - Assessment and Plan Right olecranon fracture, displaced. Right acetabular fracture, both column/ punch, stable. Surgery: Open treatment internal fixation right olecranon fracture with plates and screws: POD #1 PLAN: Nonsurgical treatment of his right hip fracture at this time. This patient may develop posttraumatic osteoarthritis of the hip requiring need for delayed total hip replacement. I would recommend nonoperative care at this time. If the both column component displaces, delayed internal fixation may be necessary. I doubt this will happen. Lovenox for anticoagulation. [place] for pain. Probable discharge to shelter facility. Nonweightbearing right arm and right leg. No dressing change to right elbow. Sling to right elbow. Follow-up in 2 weeks. Medications per admitting service. Stable orthopedically for discharge when arrangements made. [id number] form signed
[2018-09-02] MEDS: Senna/Docusate Sodium 8.6/50 MG Tablet PO SCH ×2 (08:59→21:40)
[2018-09-02] MEDS: Metoprolol Tartrate 25 MG Tablet PO SCH ×2 (08:59→23:46)
[2018-09-02] MEDS: amLODIPine 5 MG Tablet PO SCH (08:59)
[2018-09-02] MEDS: Calcium/Vitamin D 250/125 MG Tablet PO SCH ×2 (08:59→21:17)
[2018-09-02] MEDS: Pantoprazole Sodium 20 MG DR Tablet PO SCH (08:59)
[2018-09-02] MEDS: Multivitamin/Minerals Therapeutic Tablet PO SCH ×2 (08:59→21:17)
[2018-09-02] MEDS ORDERED: Mag Sulf 1 gm/100 ml Premix 100 ML IV.SIG ONE (11:22)
--- NOTE | 2018-09-02 11:35 | P.PNIM ---
Subjective Interval history: Patient reports some pain over the right hip and arm area. Open to going to rehab. Concerned about payment through his insurance. Physical Exam Vital signs: Vital Signs 09/01/18 12:25 09/01/18 12:40 09/01/18 12:55 Temperature 97.5 F L Pulse Rate 55 L 76 84 Respiratory Rate 22 18 18 Blood Pressure 76/47 L 97/53 L 108/57 L Pulse Oximetry 96 96 94 L 09/01/18 13:20 09/01/18 16:28 09/01/18 20:00 Temperature 97.8 F 98.0 F 97.5 F L Pulse Rate 77 89 82 Respiratory Rate 20 20 17 Blood Pressure 96/55 L 122/53 L 120/65 Pulse Oximetry 96 90 L 92 L 09/02/18 00:00 09/02/18 04:00 09/02/18 08:00 Temperature 97.9 F 98.0 F 97.7 F Pulse Rate 70 67 97 H Respiratory Rate 18 16 22 Blood Pressure 109/56 L 103/57 L 144/63 H Pulse Oximetry 92 L 93 L 90 L 09/02/18 09:10 09/02/18 09:11 Temperature Pulse Rate 90 Respiratory Rate 16 Blood Pressure Pulse Oximetry 94 L Intake & Output 09/01/18 09/02/18 09/02/18 18:59 06:59 18:59 Intake Total 1150 / 1150 1200 / 1200 Output Total 5 / 5 Balance 1145 / 1145 1200 / 1200 Intake: IV 1150 / 1150 1200 / 1200 LR 1000 mL Inj 1,000 ML @ 80 1000 / 1000 1000 / 1000 mls/hr IV.CONT .[id number] [facility] Rx# :[id number] Ancef 2 GM Premix Inj 2 gm In 50 / 50 50 ml @ 0 mls/hr IV.SIG .STK- MED ONE Rx#:[id number] Ancef Inj 1,000 MG In NS Inj 100 / 100 200 / 200 100 ML @ 200 mls/hr IV.SIG Q6H [facility] Rx#:[id number] Output: Estimated Blood Loss 5 / 5 Other: # Voids 500 Date of Last Bowel Movement 08/30/18 08/30/18 08/30/18 Narrative: GENERAL: This is a well-nourished, well-developed patient, in no apparent distress. CARDIOVASCULAR: Regular rate and rhythm RESPIRATORY: Few expiratory wheezes no retraction or labored breathing. GASTROINTESTINAL: Abdomen soft, non-tender, nondistended. Normal active bowel sounds MUSCULOSKELETAL: Right upper arm bandage clean dry intact and in a sling, NEURO: Alert & Oriented x4 to person, place, time, situation. Moves all ext x4 Results - Labs CBC & Chem 7: 09/02/18 06:53 09/02/18 06:53 Laboratory Results - last 24 hr 09/01/18 09/02/18 09/02/18 20:13 06:53 06:53 WBC 10.1 RBC 3.85 L Hgb 13.0 D Hct 37.4 L MCV 97.2 MCH 33.9 MCHC 34.9 RDW 12.5 Plt Count 166 MPV 8.2 Neut % (Auto) 81.1 H Lymph % (Auto) 7.9 L Canadian % (Auto) 10.6 H Eos % (Auto) 0.2 Baso % (Auto) 0.2 Neut # (Auto) 8.2 H Lymph # (Auto) 0.8 L Canadian # (Auto) 1.1 H Eos # (Auto) 0.0 Baso # (Auto) 0.0 WBC Differential . Differential Comment Auto diff final Sodium 130 L 132 L Potassium 3.9 4.3 Chloride 93 L 95 L Carbon Dioxide 28.2 30.3 Anion Gap 9 7 BUN 14 11 Creatinine 1.17 0.89 Estimated GFR 61 L 84 L Random Glucose 182 H 105 Calcium 7.6 L 7.5 L Phosphorus 3.1 Magnesium 1.3 L Vitamin B12 222 - Imaging Impressions Elbow X-Ray 09/01/18 00:00 CONCLUSION: Fluoroscopic images during placement of plate and screws fixating olecranon. Assessment and Plan - Assessment (1) Acetabulum fracture Code(s): S32.409A - Unspecified fracture of unspecified acetabulum, initial encounter for closed fracture Status: Acute (2) Fracture, olecranon Code(s): S52.023A - Displaced fracture of olecranon process without intraarticular extension of unspecified ulna, initial encounter for closed fracture Status: Acute - Plan 72-year-old white male with a history of hypertension and GERD presents after mechanical fall 1. Right displaced olecranon closed fracture status post operative day #1 ORIF- Continue postoperative care, pain control, physical therapy and bowel regimen Start Os-Fam with vitamin D for presumed osteoporosis 2. Right acetabular fracture patient at patient at risk for future post traumatic osteoarthritis at this time appreciate orthopedic surgery recommendation's and continue conservative treatment with physical therapy and pain control. Weight-bear as tolerated. 3. Hypertension, essential chronicresume home Norvasc 4. GERDresume home PPI 5. DVT prophylaxisbilateral SCDs, lovenox 6. Tobacco abuse with probable early COPD- cessation counseling, encourage incentive spirometry use, DuoNeb as needed. Discharge Planning: Likely will need jail facility placement
[2018-09-02] MEDS: Magnesium Oxide 400 MG Tablet PO SCH (21:17)
--- NOTE | 2018-09-03 07:29 | P.PNOP ---
Subjective Interval history: Patient resting comfortably. Reports right elbow pain otherwise doing well Physical Exam Vital signs: Vital Signs 09/02/18 08:00 09/02/18 09:10 09/02/18 09:11 Temperature 97.7 F Pulse Rate 97 H 90 Respiratory Rate 22 16 Blood Pressure 144/63 H Pulse Oximetry 90 L 94 L 09/02/18 12:00 09/02/18 16:00 09/02/18 20:00 Temperature 98.4 F 98.4 F 97.9 F Pulse Rate 81 89 101 H Respiratory Rate 19 16 17 Blood Pressure 90/51 L 113/58 L 106/57 L Pulse Oximetry 93 L 95 93 L 09/03/18 00:00 09/03/18 04:00 Temperature 97.8 F 97.9 F Pulse Rate 91 H 107 H Respiratory Rate 18 17 Blood Pressure 113/64 164/72 H Pulse Oximetry 94 L 95 Intake & Output 09/02/18 09/03/18 09/03/18 18:59 06:59 18:59 Intake Total 1100 / 1100 1000 / 1000 Output Total 1455 / 1455 Balance -355 / -355 1000 / 1000 Intake: IV 1100 / 1100 1000 / 1000 LR 1000 mL Inj 1,000 ML @ 80 1000 / 1000 1000 / 1000 mls/hr IV.CONT .[id number] [facility] Rx# :[id number] Magnesium Sulfate 1 gm/D5W 100 100 / 100 ml Premix 100 ML @ 100 mls/hr IV.SIG ONCE ONE Rx#:[id number] Output: Urine 1450 / 1450 Estimated Blood Loss 5 / 5 Other: # Voids 500 2 Date of Last Bowel Movement 08/30/18 # Bowel Movements 2 Narrative: Sleeping but arousable. No acute distress Right upper extremity: Splint and sling in place. Patient damages positive thumbs up, okay and finger cross. Sensation appears intact. Brisk cap refill. Results - Labs CBC & Chem 7: 09/02/18 06:53 09/02/18 06:53 Laboratory Results - last 24 hr 09/02/18 09/02/18 06:53 06:53 WBC 10.1 RBC 3.85 L Hgb 13.0 D Hct 37.4 L MCV 97.2 MCH 33.9 MCHC 34.9 RDW 12.5 Plt Count 166 MPV 8.2 Neut % (Auto) 81.1 H Lymph % (Auto) 7.9 L Hale % (Auto) 10.6 H Eos % (Auto) 0.2 Baso % (Auto) 0.2 Neut # (Auto) 8.2 H Lymph # (Auto) 0.8 L Hale # (Auto) 1.1 H Eos # (Auto) 0.0 Baso # (Auto) 0.0 WBC Differential . Differential Comment Auto diff final Sodium 132 L Potassium 4.3 Chloride 95 L Carbon Dioxide 30.3 Anion Gap 7 BUN 11 Creatinine 0.89 Estimated GFR 84 L Random Glucose 105 Calcium 7.5 L Phosphorus 3.1 Magnesium 1.3 L Vitamin B12 222 Assessment and Plan - Assessment and Plan Right olecranon fracture, displaced. Right acetabular fracture, both column/ punch, stable. Surgery: Open treatment internal fixation right olecranon fracture with plates and screws: POD #2 PLAN: Nonsurgical treatment of his right hip fracture at this time. This patient may develop posttraumatic osteoarthritis of the hip requiring need for delayed total hip replacement. I would recommend nonoperative care at this time. If the both column component displaces, delayed internal fixation may be necessary. I doubt this will happen. Lovenox for anticoagulation. [place] for pain. Probable discharge to half-way facility. Nonweightbearing right arm and right leg. No dressing change to right elbow. Sling to right elbow. Follow-up in 2 weeks. Medications per admitting service. Stable orthopedically for discharge when arrangements made. [id number] form signed
[2018-09-03] MEDS: Metoprolol Tartrate 25 MG Tablet PO SCH ×2 (08:15→20:23)
[2018-09-03] MEDS: amLODIPine 5 MG Tablet PO SCH (08:15)
[2018-09-03] MEDS: Multivitamin/Minerals Therapeutic Tablet PO SCH ×2 (08:15→20:22)
[2018-09-03] MEDS: Senna/Docusate Sodium 8.6/50 MG Tablet PO SCH ×2 (08:15→20:22)
[2018-09-03] MEDS: Calcium/Vitamin D 250/125 MG Tablet PO SCH ×2 (08:15→20:22)
[2018-09-03] MEDS: Magnesium Oxide 400 MG Tablet PO SCH ×2 (08:15→20:22)
[2018-09-03] MEDS: Pantoprazole Sodium 20 MG DR Tablet PO SCH (08:16)
--- NOTE | 2018-09-03 10:13 | P.DS ---
Date of admission: 08/31/18 15:42 Primary care physician: Jewell Chance MD Anticipated date of discharge: 09/05/18 Brief History from admission: 72-year-old white male with a history of hypertension, GERD presents to the emergency room due to difficulty ambulating since his fall 2 days ago. Apparently he was walking outside in a joan of wind caused him to lose his balance and falling to his right side. He states that he did not hit his head nor lose consciousness. Since the fall, he had significant pain over his right elbow and right hip. Due to the fact that he continues to have a difficult time ambulating and having intractable pain, his friend brought him to emergency room today. He reports no complaints of chest pain shortness of breath. He does not struggle with constipation. He does report chronic runny nose. He has been told by his primary care physician in the past that he may have early stages of COPD however he does not use an inhaler. Patient update on day of discharge: Patient reports pain control. No other concerns at this time. Ready to go to rehab DS: Diagnosis - Discharge Diagnosis (1) Acetabulum fracture Status: Acute Diagnosis: Principal (2) Fracture, olecranon Status: Acute Diagnosis: Principal DS: Medications - Discharge Medications Prescriptions: hydrocodone-acetaminophen 1 tab PO Q4H PRN #18 tab PRN Reason: Acute Pain DS: Summary Hospital Course: These are the medical issues addressed during this hospitalization: 72-year-old white male with a history of hypertension and GERD presents after mechanical fall 1. Right displaced olecranon closed fracture status post operative day #2 ORIF ( ) - Continue postoperative care, pain control, physical therapy and bowel regimen Start Os-Fam with vitamin D for presumed osteoporosis 2. Right acetabular fracture patient at patient at risk for future post traumatic osteoarthritis at this time appreciate orthopedic surgery recommendation's and continue conservative treatment with physical therapy and pain control. Weight-bear as tolerated. 3. Hypertension, essential chronicresume home Norvasc 4. GERDresume home PPI 5. DVT prophylaxisbilateral SCDs, lovenox 6. Tobacco abuse with probable early COPD- cessation counseling, encourage incentive spirometry use, DuoNeb as needed. Patient has gained maximum benefit from hospitalization is ready to be transitioned to alf facility [facility] Prescription Drug Monitoring Database has been queried and verified prior to prescribing the controlled subsection. Patient is having significant pain caused by right elbow and right acetabular fracture which will last more than 3 days. Trial of alternative treatment options other than prescribed opioids has not helped. I believe that it is medically necessary to treat the patients pain because it is affecting patients ability to ambulate. - Time Spent with Patient Total time spent providing and/or coordinating discharge services: Less than 30 minutes - Quality: VTE Deep Vein Thrombosis/Pulmonary Embolism Present on Admission: No Exam Vital signs: Vital Signs 09/02/18 12:00 09/02/18 16:00 09/02/18 20:00 Temperature 98.4 F 98.4 F 97.9 F Pulse Rate 81 89 101 H Respiratory Rate 19 16 17 Blood Pressure 90/51 L 113/58 L 106/57 L Pulse Oximetry 93 L 95 93 L 09/03/18 00:00 09/03/18 04:00 09/03/18 08:00 Temperature 97.8 F 97.9 F 97.9 F Pulse Rate 91 H 107 H 106 H Respiratory Rate 18 17 18 Blood Pressure 113/64 164/72 H 128/64 Pulse Oximetry 94 L 95 97 09/03/18 08:46 Temperature Pulse Rate 101 H Respiratory Rate 18 Blood Pressure Pulse Oximetry 95 Intake & Output 09/02/18 09/03/18 09/03/18 18:59 06:59 18:59 Intake Total 1100 / 1100 1000 / 1000 Output Total 1455 / 1455 Balance -355 / -355 1000 / 1000 Intake: IV 1100 / 1100 1000 / 1000 LR 1000 mL Inj 1,000 ML @ 80 1000 / 1000 1000 / 1000 mls/hr IV.CONT .[id number] [facility] Rx# :[id number] Magnesium Sulfate 1 gm/D5W 100 100 / 100 ml Premix 100 ML @ 100 mls/hr IV.SIG ONCE ONE Rx#:[id number] Output: Urine 1450 / 1450 Estimated Blood Loss 5 / 5 Other: # Voids 500 2 Date of Last Bowel Movement 08/30/18 # Bowel Movements 2 Narrative: GENERAL: This is a well-nourished, well-developed patient, in no apparent distress. CARDIOVASCULAR: Regular rate and rhythm RESPIRATORY: relatively clear to auscultation bilaterally GASTROINTESTINAL: Abdomen soft, non-tender, nondistended. Normal active bowel sounds MUSCULOSKELETAL: Right upper arm bandage clean dry intact and in a sling, NEURO: Alert & Oriented x4 to person, place, time, situation. Moves all ext x4 Results Procedures completed during hospitalization: 09/01 right elbow ORIF - Impressions ITS Impressions Femur X-Ray 08/31/18 14:00 CONCLUSION: See the hip reported separately. The femur is intact. Hip X-Ray 08/31/18 14:00 CONCLUSION: Acute acetabular fracture with acetabular protrusio. Chest X-Ray 08/31/18 15:30 CONCLUSION: The lungs are hyperinflated consistent with COPD. No acute infiltrate or effusion. Hip CT 08/31/18 15:39 CONCLUSION: 1. Comminuted acetabular fracture with acetabular protrusio, small volume hemarthrosis, and small volume hemorrhage within the pelvis. Elbow X-Ray 09/01/18 00:00 CONCLUSION: Fluoroscopic images during placement of plate and screws fixating olecranon. Discharge Plan - Discharge Disposition Patient Disposition: Discharge to SNF - Discharge Condition Condition: Good - Discharge Order Discharge Orders: Discharge Order (Routine); Ordered 09/03/18 Ordered By: [place] Castro - Discharge Details Anticipated Discharge Date: 09/03/18 - Physicians Team Primary Care Provider: Jewell Chance Attending Provider: [place] Castro Other Providers: Ruben Salazar MD ; [employer] ; [facility],[place]
[2018-09-04] MEDS: Enoxaparin Inj 30 MG/0.3 ML Syringe SQ SCH (00:31)
--- NOTE | 2018-09-04 07:03 | P.PNOP ---
Subjective Interval history: Patient resting comfortably. Reports right elbow pain otherwise doing well Physical Exam Vital signs: Vital Signs 09/03/18 08:00 09/03/18 08:46 09/03/18 12:00 Temperature 97.9 F 98.3 F Pulse Rate 106 H 101 H 97 H Respiratory Rate 18 18 18 Blood Pressure 128/64 98/57 L Pulse Oximetry 97 95 91 L 09/03/18 16:00 09/03/18 20:00 09/03/18 20:30 Temperature 97.3 F L 98.5 F Pulse Rate 104 H 120 H 101 H Respiratory Rate 18 17 Blood Pressure 111/61 100/64 Pulse Oximetry 91 L 94 L 09/04/18 00:00 09/04/18 06:14 Temperature 98.6 F Pulse Rate 84 Respiratory Rate 17 16 Blood Pressure 126/74 Pulse Oximetry 92 L Intake & Output 09/03/18 09/04/18 09/04/18 18:59 06:59 18:59 Intake Total 1200 / 1200 Output Total 900 / 900 1000 / 1000 Balance 300 / 300 -1000 / -1000 Intake: Oral 1200 / 1200 Output: Urine 900 / 900 1000 / 1000 Other: Date of Last Bowel Movement 09/03/18 Narrative: Sleeping but arousable Right upper extremity: Splint and sling in place. Patient appears neurovascularly intact distally. Bilateral negative Homans Results - Labs CBC & Chem 7: 09/02/18 06:53 09/02/18 06:53 - Procedures 09/01 right elbow ORIF Assessment and Plan - Assessment and Plan Right olecranon fracture, displaced. Right acetabular fracture, both column/ punch, stable. Surgery: Open treatment internal fixation right olecranon fracture with plates and screws: POD #3 PLAN: Nonsurgical treatment of his right hip fracture at this time. This patient may develop posttraumatic osteoarthritis of the hip requiring need for delayed total hip replacement. I would recommend nonoperative care at this time. If the both column component displaces, delayed internal fixation may be necessary. I doubt this will happen. Lovenox for anticoagulation. [place] for pain. Probable discharge to custodial facility. Nonweightbearing right arm and right leg. No dressing change to right elbow. Sling to right elbow. Follow-up in 2 weeks. Medications per admitting service. Stable orthopedically for discharge when arrangements made. [id number] form signed
[2018-09-04] MEDS: amLODIPine 5 MG Tablet PO SCH (09:13)
[2018-09-04] MEDS: Metoprolol Tartrate 25 MG Tablet PO SCH ×2 (09:13→20:05)
[2018-09-04] MEDS: Senna/Docusate Sodium 8.6/50 MG Tablet PO SCH ×2 (09:13→20:05)
[2018-09-04] MEDS: Calcium/Vitamin D 250/125 MG Tablet PO SCH ×2 (09:13→20:04)
[2018-09-04] MEDS: Multivitamin/Minerals Therapeutic Tablet PO SCH ×2 (09:13→20:04)
[2018-09-04] MEDS: Pantoprazole Sodium 20 MG DR Tablet PO SCH (09:13)
[2018-09-04] MEDS: Magnesium Oxide 400 MG Tablet PO SCH ×2 (09:13→20:04)
--- NOTE | 2018-09-04 09:42 | P.PNIM ---
Subjective Interval history: Overall pain control. No other complaints at this time. Willing to go to rehab. Physical Exam Vital signs: Vital Signs 09/03/18 12:00 09/03/18 16:00 09/03/18 20:00 Temperature 98.3 F 97.3 F L 98.5 F Pulse Rate 97 H 104 H 120 H Respiratory Rate 18 18 17 Blood Pressure 98/57 L 111/61 100/64 Pulse Oximetry 91 L 91 L 94 L 09/03/18 20:30 09/04/18 00:00 09/04/18 06:14 Temperature 98.6 F Pulse Rate 101 H 84 Respiratory Rate 17 16 Blood Pressure 126/74 Pulse Oximetry 92 L 09/04/18 08:00 Temperature 97.6 F Pulse Rate 98 H Respiratory Rate 16 Blood Pressure 125/77 Pulse Oximetry 94 L Intake & Output 09/03/18 09/04/18 09/04/18 18:59 06:59 18:59 Intake Total 1200 / 1200 Output Total 900 / 900 1000 / 1000 Balance 300 / 300 -1000 / -1000 Intake: Oral 1200 / 1200 Output: Urine 900 / 900 1000 / 1000 Other: Date of Last Bowel Movement 09/03/18 09/03/18 Narrative: GENERAL: This is a well-nourished, well-developed patient, in no apparent distress. CARDIOVASCULAR: Regular rate and rhythm RESPIRATORY: Clear to auscultation. Breath sounds equal bilaterally. No wheezes , rales, or rhonchi. GASTROINTESTINAL: Abdomen soft, non-tender, nondistended. Normal active bowel sounds MUSCULOSKELETAL: Right upper extremities stabilized with a sling bandage clean dry and intact, neurovascularly intact NEURO: Alert & Oriented x4 to person, place, time, situation. Moves all ext x4 Results - Labs CBC & Chem 7: 09/02/18 06:53 09/02/18 06:53 - Procedures 09/01 right elbow ORIF Assessment and Plan - Assessment (1) Acetabulum fracture Code(s): S32.409A - Unspecified fracture of unspecified acetabulum, initial encounter for closed fracture Status: Acute (2) Fracture, olecranon Code(s): S52.023A - Displaced fracture of olecranon process without intraarticular extension of unspecified ulna, initial encounter for closed fracture Status: Acute - Plan 72-year-old white male with a history of hypertension and GERD presents after mechanical fall 1. Right displaced olecranon closed fracture status post operative day #3 ORIF- Continue postoperative care, pain control, physical therapy and bowel regimen Continue Os-Fam with vitamin D for presumed osteoporosis 2. Right acetabular fracture patient at patient at risk for future post traumatic osteoarthritis at this time appreciate orthopedic surgery recommendation's and continue conservative treatment with physical therapy and pain control. Weight-bear as tolerated. 3. Hypertension, essential chronicresume home Norvasc, overall blood pressure controlled 4. GERDresume home PPI 5. DVT prophylaxisbilateral SCDs, lovenox 6. Tobacco abuse with probable early COPD- cessation counseling, encourage incentive spirometry use, DuoNeb as needed. Follow-up with primary care physician Discharge Planning: Discharged to nursing home facility when placement completed.
[2018-09-05] MEDS: Enoxaparin Inj 30 MG/0.3 ML Syringe SQ SCH (01:03)
[2018-09-05] MEDS: Multivitamin/Minerals Therapeutic Tablet PO SCH (08:30)
[2018-09-05] MEDS: Senna/Docusate Sodium 8.6/50 MG Tablet PO SCH (08:30)
[2018-09-05] MEDS: Magnesium Oxide 400 MG Tablet PO SCH (08:30)
[2018-09-05] MEDS: amLODIPine 5 MG Tablet PO SCH (08:30)
[2018-09-05] MEDS: Metoprolol Tartrate 25 MG Tablet PO SCH (08:30)
[2018-09-05] MEDS: Calcium/Vitamin D 250/125 MG Tablet PO SCH (08:30)
[2018-09-05] MEDS: Pantoprazole Sodium 20 MG DR Tablet PO SCH (08:30)
--- NOTE | 2018-09-05 12:20 | P.PN ---
Subjective Interval history: Patient doing well overnight. Patient reports that he is tolerating p.o., and voiding/stooling well. No overnight events per RN. Physical Exam Vital signs: Vital Signs 09/04/18 15:57 09/04/18 17:17 09/04/18 20:00 Temperature 98.4 F 97.9 F Pulse Rate 104 H 94 H Respiratory Rate 16 15 18 Blood Pressure 145/74 H 129/79 Pulse Oximetry 94 L 93 L 09/05/18 00:00 09/05/18 08:00 Temperature 98.0 F 98.3 F Pulse Rate 97 H 99 H Respiratory Rate 18 18 Blood Pressure 138/81 146/79 H Pulse Oximetry 92 L 92 L Intake & Output 09/04/18 09/05/18 09/05/18 18:59 06:59 18:59 Intake Total 480 / 480 Balance 480 / 480 Intake: Oral 480 / 480 Other: # Voids 3 875 Date of Last Bowel Movement 09/03/18 09/03/18 09/03/18 Narrative: GENERAL: Well-nourished male, in no NAD, lying comfortably in bed SKIN: Warm and dry. HEENT: Atraumatic. Normocephalic. No scleral icterus. No injection or drainage. PERRLA, MOM. NECK: Trachea midline. No JVD. CARDIOVASCULAR: Regular rate and rhythm. S1 and S2, no murmurs rubs or gallops. RESPIRATORY: Clear to auscultationx2. Breath sounds equal bilaterally. GASTROINTESTINAL: Abdomen soft, NTTP, +BS. Hepatic and splenic margins not palpable. MUSCULOSKELETAL: Extremities without clubbing, cyanosis. Right upper arm stabilized in the splint with bandage clean dry and intact. NEUROLOGICAL: Awake and alert. No obvious cranial nerve deficits. No focal deficits. PSYCHIATRIC: Appropriate mood and affect; insight and judgment normal. Results - Labs CBC & Chem 7: 09/02/18 06:53 09/02/18 06:53 - Procedures 09/01 right elbow ORIF Assessment and Plan - Assessment (1) Acetabulum fracture Code(s): S32.409A - Unspecified fracture of unspecified acetabulum, initial encounter for closed fracture Status: Acute (2) Fracture, olecranon Code(s): S52.023A - Displaced fracture of olecranon process without intraarticular extension of unspecified ulna, initial encounter for closed fracture Status: Acute - Plan This is a 72-year-old CM with a PMHx of HTN and GERD who presented to the ED after a mechanical fall and Dx with a Right Displaced Olecranon Closed Fx s/p Right ORIF on 09/01, POD#4 1. Right Displaced Olecranon Closed Fx s/p ORIF on 09/01 Appreciate Ortho assistance with management Continue postoperative care, pain control, physical therapy and bowel regimen Continue Os-Fam with vitamin D for presumed osteoporosis 2. Right Acetabular Fracture Patient at risk for future post traumatic osteoarthritis at this time Appreciate orthopedic surgery recommendation's and continue conservative treatment with PT and pain control. 3. Hypertension, chronic Stable Resume home Norvasc and Metoprolol 4. Hyponatremia Sodium 132 on 09/02 Checking BMP this morning 5. GI PPX: Cont. PPI 6. DVT prophylaxis: Cont. Lovenox 7. Tobacco Abuse Cessation counseling, encourage incentive spirometry use, DuoNeb as needed. 8. Dispo: Pending placement for rehab, F/U BMP this AM Code Status: full Discussed Condition With: Patient, RN, bilingual case manager
[2018-09-05 13:01] VITALS: BP 125/75; PULSE 87; RESP 20; TEMP 98.5; O2SAT 93
[2018-09-05 15:51] LABS: Anion Gap 9 meq/L (5-15); Blood Urea Nitrogen 10 mg/dL (7-18); Calcium 8.4 mg/dL (8.5-10.1); Carbon Dioxide 31.1 meq/L (21.0-32.0); Chloride 89 meq/L (98-107); Glomerular Filtration Rate Greater Than 89 mL/min (>89); Glucose,Random 163 mg/dL (74-106); Potassium 3.5 meq/L (3.5-5.1); Sodium 129 meq/L (136-145)
== END 2018-09-05 16:33 ==
LOC: NEPE 13:53 → NEDA 15:42 → N06 18:01
PROVIDERS: ADMIT Family Medicine; ATTEND Family Medicine
PROC: ORIFELB (2018-09-01 10:22)

== ENCOUNTER 2018-11-24 05:18 | Observation (INO) ==
[2018-11-24] MEDS ORDERED: Metoprolol Tartrate 25 MG Tablet PO ONE (06:19)
[2018-11-24] MEDS ORDERED: Chlorhexidine Gluconate 2% 1 Pack (2 Cloths) TOPICAL ONE (06:19)
[2018-11-24] MEDS ORDERED: Chlorhexidine 4% Topical 120 APPLIC/120 ML Bottle TOPICAL SCH (06:30)
[2018-11-24] MEDS ORDERED: Sodium Chlor 0.9% Inj 500 ML IV.SIG SCH (07:00)
[2018-11-24] MEDS ORDERED: Bupivacaine/Epinephrine Inj 0.25% 50 ML Vial ONE (07:31)
[2018-11-24] MEDS: ceFAZolin 2 GM Premix Inj 2 GM/50 ML PIGGYBACK IV.SIG SCH (07:44)
[2018-11-24] MEDS ORDERED: Post-op Orders (for Pharmacy) OTHER STA (08:40)
[2018-11-24] MEDS ORDERED: Temazepam 15 MG Capsule PO PRN (08:40)
[2018-11-24] MEDS ORDERED: Bisacodyl 10 MG Supp RECTAL PRN (08:40)
[2018-11-24] MEDS ORDERED: Morphine Inj 4 MG/ML Vial IV.PUSH PRN (08:40)
--- NOTE | 2018-11-24 08:50 | P.OP ---
- Preoperative Diagnosis (1) Fracture, olecranon Preoperative Diagnosis: History of internal fixation, right elbow. Chronic wound, right elbow. Exposed hardware, right elbow Postoperative Diagnosis: Same Date of procedure: 11/24/18 Procedure: Arthrotomy of the right elbow. Next closure and removal of internal fixation, right elbow. Excision of exposed bone of the right elbow. Anesthesia: GETA Surgeon: Ruben Salazar MD Graves Registration Specialist: Saumya Crews PA-C Operation and Findings: EBL: Minimal INDICATION: This patient is a 73-year-old white male status post previous internal fixation of the right elbow. He is a 2 pack-a-day smoker and leans chronically on his elbows. He has developed exposed hardware in the region of the right elbow. He presents for the above treatment NOTE: Saumya Crews PA-C was present for the entire surgical procedure as my first press operator. In my medical opinion her skill and care was necessary for proper management of this patient. PROCEDURE: The patient was brought to the operating room and anesthetized in the supine position. The patient was rolled to a right side up lateral position and held with a beanbag. The arm was draped over a holding the bolster. A tourniquet was placed. The arm was scrubbed with alcohol followed by Hibiclens followed by ChloraPrep and draped sterilely. A timeout was done and antibiotics were given within a routine time window. After exsanguination the tourniquet was inflated to 250 mmHg. The previous incision was excised. There was a small exposed area of hardware which was also excised. A prominence of bone was seen at the edge of the skin which was exposed and excised. The hardware was removed removing all the screws first. This extended down and arthrotomy of the elbow was performed. This area was debrided and cultures were taken. The wound was irrigated with antibiotic irrigation. An 8 inch Hemovac drain was brought through separate stab incision. The deep fascia was closed with interrupted 2-0 PDS. Skin and subcutaneous tissue with 3-0 nylon in a mattress fashion.. The patient was awakened and taken to the recovery room in satisfactory condition. FINDINGS: There was evidence of exposed hardware. No clear evidence of an aggressive deep infection. This whole area was debrided. A drain was placed. Cultures were obtained.
[2018-11-24] MEDS ORDERED: fentaNYL Citrate Inj 100 MCG/2 ML Ampul ONE (09:22)
[2018-11-24] MEDS: amLODIPine 5 MG Tablet PO SCH (09:59)
[2018-11-24] MEDS: Senna/Docusate Sodium 8.6/50 MG Tablet PO SCH ×2 (09:59→21:21)
[2018-11-24] MEDS: Multivitamin/Minerals Therapeutic Tablet PO SCH ×2 (09:59→21:20)
[2018-11-24] MEDS: Metoprolol Tartrate 25 MG Tablet PO SCH ×2 (10:00→21:24)
[2018-11-24] MEDS: Pantoprazole Sodium 20 MG DR Tablet PO SCH (11:26)
[2018-11-24] MEDS: ceFAZolin Inj 1 GM in Sodium Chlor 0.9% Inj 100 ML IV.SIG SCH ×2 (13:50→21:21)
[2018-11-25] MEDS: ceFAZolin Inj 1 GM in Sodium Chlor 0.9% Inj 100 ML IV.SIG SCH ×4 (03:01→21:50)
--- NOTE | 2018-11-25 08:05 | P.PNOP ---
Subjective Interval history: Doing well. Minimal drainage from drain. No complaints Physical Exam Vital signs: Vital Signs 11/24/18 09:10 11/24/18 09:30 11/24/18 09:36 Temperature 97.6 F Pulse Rate 75 84 Respiratory Rate 24 15 Blood Pressure 84/51 L 102/55 L Pulse Oximetry 100 98 98 11/24/18 09:45 11/24/18 10:00 11/24/18 10:24 Temperature Pulse Rate 74 73 Respiratory Rate 14 13 Blood Pressure 105/62 97/53 L Pulse Oximetry 99 98 98 11/24/18 10:30 11/24/18 11:00 11/24/18 12:00 Temperature 97.4 F L Pulse Rate 70 84 79 Respiratory Rate 14 13 15 Blood Pressure 97/55 L 97/62 L 98/61 L Pulse Oximetry 100 100 99 11/24/18 12:58 11/24/18 16:30 11/24/18 19:00 Temperature 98 F 97.5 F L 97.4 F L Pulse Rate 71 71 71 Respiratory Rate 18 18 18 Blood Pressure 98/55 L 103/59 L 115/57 L Pulse Oximetry 96 97 94 L 11/25/18 00:10 11/25/18 03:40 Temperature 97.8 F 97.9 F Pulse Rate 89 88 Respiratory Rate 18 18 Blood Pressure 119/71 122/71 Pulse Oximetry 95 93 L Intake & Output 11/24/18 11/25/18 11/25/18 18:59 06:59 18:59 Intake Total 950 / 950 2040 / 2040 Output Total 5 / 5 1560 / 1560 Balance 945 / 945 480 / 480 Weight 63.5 kg 63.5 kg Intake: IV 950 / 950 1200 / 1200 LR 1000 mL Inj 1,000 ML @ 80 1000 / 1000 mls/hr IV.CONT .[id number] [facility] Rx# :[id number] LR 1000 mL Inj 1,000 ML @ 30 800 / 800 mls/hr IV.SIG .Q24H [facility] Rx#: [id number] Ancef 2 GM Premix Inj 2 gm In 50 / 50 50 ml @ 100 mls/hr IV.SIG [employer] [facility] Rx#:[id number] Ancef Inj 1 GM In NS Inj 100 ML 100 / 100 200 / 200 @ 200 mls/hr IV.SIG Q6H [facility] Rx #:[id number] Oral 840 / 840 Output: Urine 1550 / 1550 Estimated Blood Loss Wound Drainage # 1 Right Elbow Other: Date of Last Bowel Movement 11/23/18 11/23/18 # Bowel Movements 0 Narrative: Dressing dry to right elbow. Drain intact. Sensation normal. Assessment and Plan - Assessment and Plan History of right elbow ORIF, healed. Exposed hardware, right elbow. Preoperative culture negative, but likely colonized. Surgery: I&D of the right elbow with removal of hardware, extensive debridement and closure over drain: POD #1 PLAN: Discontinue drain. Culture pending: If grows resistant organism, consider ID consult for recommendations. No evidence of osteomyelitis. Hardware has been removed. Patient on Ancef at this time. Plan oral antibiotics depending on sensitivity of culture. If culture is negative, will discharge on doxycycline 100 mg twice daily for 10 days [place] as needed for pain. Daily dressing change with large bundle dressing. Patient tends to sit with elbows having pressure on them. Discharge home, possibly Wednesday or Wednesday depending on cultures. Home health care
--- NOTE | 2018-11-25 08:06 | P.DS ---
Date of admission: 11/24/18 08:40 Primary care physician: Jewell Chance MD Attending physician on discharge: Ruben Salazar Anticipated date of discharge: 11/27/18 DS: Medications - Discharge Medications Prescriptions: hydrocodone-acetaminophen 1 tab PO Q6HR PRN #28 tab PRN Reason: Acute Pain DS: Summary - Time Spent with Patient Total time spent providing and/or coordinating discharge services: - Quality: VTE Deep Vein Thrombosis/Pulmonary Embolism Present on Admission: No Exam Vital signs: Vital Signs 11/24/18 09:10 11/24/18 09:30 11/24/18 09:36 Temperature 97.6 F Pulse Rate 75 84 Respiratory Rate 24 15 Blood Pressure 84/51 L 102/55 L Pulse Oximetry 100 98 98 11/24/18 09:45 11/24/18 10:00 11/24/18 10:24 Temperature Pulse Rate 74 73 Respiratory Rate 14 13 Blood Pressure 105/62 97/53 L Pulse Oximetry 99 98 98 11/24/18 10:30 11/24/18 11:00 11/24/18 12:00 Temperature 97.4 F L Pulse Rate 70 84 79 Respiratory Rate 14 13 15 Blood Pressure 97/55 L 97/62 L 98/61 L Pulse Oximetry 100 100 99 11/24/18 12:58 11/24/18 16:30 11/24/18 19:00 Temperature 98 F 97.5 F L 97.4 F L Pulse Rate 71 71 71 Respiratory Rate 18 18 18 Blood Pressure 98/55 L 103/59 L 115/57 L Pulse Oximetry 96 97 94 L 11/25/18 00:10 11/25/18 03:40 Temperature 97.8 F 97.9 F Pulse Rate 89 88 Respiratory Rate 18 18 Blood Pressure 119/71 122/71 Pulse Oximetry 95 93 L Intake & Output 11/24/18 11/25/18 11/25/18 18:59 06:59 18:59 Intake Total 950 / 950 2040 / 2040 Output Total 5 / 5 1560 / 1560 Balance 945 / 945 480 / 480 Weight 63.5 kg 63.5 kg Intake: IV 950 / 950 1200 / 1200 LR 1000 mL Inj 1,000 ML @ 80 1000 / 1000 mls/hr IV.CONT .[id number] [facility] Rx# :[id number] LR 1000 mL Inj 1,000 ML @ 30 800 / 800 mls/hr IV.SIG .Q24H [facility] Rx#: [id number] Ancef 2 GM Premix Inj 2 gm In 50 / 50 50 ml @ 100 mls/hr IV.SIG S[employer] [facility] Rx#:[id number] Ancef Inj 1 GM In NS Inj 100 ML 100 / 100 200 / 200 @ 200 mls/hr IV.SIG Q6H [facility] Rx #:[id number] Oral 840 / 840 Output: Urine 1550 / 1550 Estimated Blood Loss Wound Drainage # 1 Right Elbow Other: Date of Last Bowel Movement 11/23/18 11/23/18 # Bowel Movements 0 Discharge Plan - Discharge Disposition Patient Disposition: /Home Health Service - Discharge Condition Condition: Good - Discharge Order Discharge Orders: Discharge Order (Routine); Ordered 11/27/18 Ordered By: Silvia Durán - Physicians Team Primary Care Provider: Jewell Chance Attending Provider: Ruben Salazar - Rxs /Orders / Referrals /Forms Prescriptions: New hydrocodone-acetaminophen 7.5-325 mg Tablet 1 tab PO Q6HR PRN (Reason: Acute Pain) Qty: 28 RF: 0 No Action amlodipine 5 mg Tablet 1 tab PO DAILY metoprolol tartrate 50 mg Tablet 25 mg PO BID omeprazole 20 mg Capsule,Delayed Release(Dr/Ec) 20 mg PO DAILY Referrals: Jewell Chance MD [Primary Care Provider] - See Instructions - Post Discharge Care Plan Care Plan Goals: Your Health Problems: Removal of right elbow hardware Surgical incision Goals to Promote Your Health: * To prevent worsening of your condition * To maintain your health at the optimal level Directions to Meet Your Goals: * Take your medications as prescribed * Follow your dietary instruction * Follow activity as directed. You can use your right arm but no heavy lifting or resting your elbow on hard surfaces. * Keep your appointments as scheduled * Take your immunizations and boosters as scheduled * If your symptoms worsen call your PCP * If no PCP go to Urgent Care or Emergency Room Smoking is dangerous to your health. Avoid second hand smoke. You may reach the 24-hour crisis hotline for domestic abuse at .
--- NOTE | 2018-11-25 08:08 | P.DCO ---
- Nursing RN days per week: 5 x week(s): 2 Dressing changes: Daily dressing change Additional instructions: RN 5days/wk for 2 weeks. Daily dressing changes right elbow, cling. - Certification Need for Home Health services: I have seen patient Justin Fuentes on 11/25/18. My clinical findings support the need for the requested home health care services because: Need for Home Health Services: Limited ability to care for self, High risk of falls Homebound Certification: I certify that my clinical findings support that this patient is homebound because: Homebound Certification: Post-op weakness, Unsteady gait/balance
[2018-11-25] MEDS: Metoprolol Tartrate 25 MG Tablet PO SCH ×2 (08:18→21:50)
[2018-11-25] MEDS: Multivitamin/Minerals Therapeutic Tablet PO SCH ×2 (08:18→21:50)
[2018-11-25] MEDS: Pantoprazole Sodium 20 MG DR Tablet PO SCH (08:18)
[2018-11-25] MEDS: Senna/Docusate Sodium 8.6/50 MG Tablet PO SCH ×2 (08:18→21:50)
[2018-11-25] MEDS: amLODIPine 5 MG Tablet PO SCH (08:18)
[2018-11-26] MEDS: ceFAZolin Inj 1 GM in Sodium Chlor 0.9% Inj 100 ML IV.SIG SCH ×4 (01:42→21:21)
--- NOTE | 2018-11-26 09:47 | P.PNOP ---
Subjective Interval history: Pt awake and alert and at bedside. RN at bedside. Very anxious to go home hopefully tomorrow. Physical Exam Vital signs: Vital Signs 11/25/18 11:20 11/25/18 15:27 11/25/18 19:47 Temperature 98 F 97.8 F 97.4 F L Pulse Rate 87 79 77 Respiratory Rate 16 16 19 Blood Pressure 130/73 111/69 128/70 Pulse Oximetry 95 98 97 11/25/18 23:52 Temperature 97.6 F Pulse Rate 67 Respiratory Rate 18 Blood Pressure 118/73 Pulse Oximetry 98 Intake & Output 11/25/18 11/26/18 11/26/18 18:59 06:59 18:59 Intake Total 1680 / 1680 940 / 940 Output Total 800 / 800 795 / 795 Balance 880 / 880 145 / 145 Weight 59.7 kg Intake: IV 1200 / 1200 200 / 200 LR 1000 mL Inj 1,000 ML @ 80 1000 / 1000 mls/hr IV.CONT .[id number] [facility] Rx# :[id number] Ancef Inj 1 GM In NS Inj 100 ML 200 / 200 200 / 200 @ 200 mls/hr IV.SIG Q6H [facility] Rx #:[id number] Oral 480 / 480 740 / 740 Output: Urine 800 / 800 795 / 795 Other: Date of Last Bowel Movement 11/25/18 11/25/18 # Bowel Movements 1 0 Narrative: Dressing dry to right elbow. Drain intact. Sensation normal. Sling in place Results - Labs Microbiology 11/24/18 08:21 Tissue - Elbow Gram Stain - Final 11/24/18 08:21 Tissue - Elbow Wound Culture - Preliminary 11/24/18 08:21 Tissue - Elbow Acid Fast Bacilli Smear - Final No acid fast bacilli seen Assessment and Plan - Problem List (1) Closed olecranon fracture Code(s): S52.023A - Displaced fracture of olecranon process without intraarticular extension of unspecified ulna, initial encounter for closed fracture Status: Acute - Assessment and Plan Surgery: I&D of the right elbow with removal of hardware, extensive debridement and closure over drain: POD #2 PLAN: Prelim Culture: GP Cocci If final culture shows MRSA or aggressive organism will involve infectious disease for recommendations. No evidence of osteomyelitis. Hardware has been removed. Patient on Ancef at this time. Plan oral antibiotics depending on sensitivity of culture. If culture is negative, will discharge on doxycycline 100 mg twice daily for 10 days [place] as needed for pain. Daily dressing change with large bundle dressing. Patient tends to sit with elbows having pressure on them. Discharge home, possibly Wednesday depending on cultures. Home health care
[2018-11-26] MEDS: Pantoprazole Sodium 20 MG DR Tablet PO SCH (11:24)
[2018-11-26] MEDS: Senna/Docusate Sodium 8.6/50 MG Tablet PO SCH ×2 (11:25→21:22)
[2018-11-26] MEDS: Multivitamin/Minerals Therapeutic Tablet PO SCH ×2 (11:25→21:22)
[2018-11-26] MEDS: Metoprolol Tartrate 25 MG Tablet PO SCH ×2 (11:25→21:22)
[2018-11-26] MEDS: amLODIPine 5 MG Tablet PO SCH (11:25)
[2018-11-26] MEDS: ceFAZolin 2 GM Premix Inj 2 GM/50 ML PIGGYBACK IV.SIG SCH (11:26)
[2018-11-27] MEDS: ceFAZolin Inj 1 GM in Sodium Chlor 0.9% Inj 100 ML IV.SIG SCH ×4 (03:05→20:32)
[2018-11-27] MEDS: amLODIPine 5 MG Tablet PO SCH (09:10)
[2018-11-27] MEDS: Pantoprazole Sodium 20 MG DR Tablet PO SCH (09:10)
[2018-11-27] MEDS: Multivitamin/Minerals Therapeutic Tablet PO SCH ×2 (09:10→20:33)
[2018-11-27] MEDS: Metoprolol Tartrate 25 MG Tablet PO SCH ×2 (09:10→20:33)
[2018-11-27] MEDS: Senna/Docusate Sodium 8.6/50 MG Tablet PO SCH ×2 (09:12→20:33)
--- NOTE | 2018-11-27 16:43 | P.PNOP ---
Subjective Interval history: Pt admits pain well controlled. Pt is ok with staying another night for Abx treatment. Physical Exam Vital signs: Vital Signs 11/26/18 17:15 11/26/18 20:00 11/27/18 00:00 Temperature 97.5 F L 98.4 F 97.5 F L Pulse Rate 60 76 63 Respiratory Rate 16 18 22 Blood Pressure 108/65 124/75 100/68 Pulse Oximetry 95 97 92 L 11/27/18 00:45 11/27/18 08:00 11/27/18 12:00 Temperature 98.0 F 97.6 F Pulse Rate 83 73 Respiratory Rate 14 16 Blood Pressure 121/67 130/76 Pulse Oximetry 95 95 93 L Intake & Output 11/26/18 11/27/18 11/27/18 18:59 06:59 18:59 Intake Total 200 / 200 1449 / 1449 100 / 100 Output Total 625 / 625 Balance 200 / 200 824 / 824 100 / 100 Intake: IV 200 / 200 1089 / 1089 100 / 100 LR 1000 mL Inj 1,000 ML @ 80 889 / 889 mls/hr IV.CONT .[id number] [facility] Rx# :[id number] Ancef Inj 1 GM In NS Inj 100 ML 200 / 200 200 / 200 100 / 100 @ 200 mls/hr IV.SIG Q6H [facility] Rx #:[id number] Oral 360 / 360 Output: Urine 625 / 625 Other: Date of Last Bowel Movement 11/25/18 11/26/18 11/26/18 # Bowel Movements 0 Narrative: Dressing dry to right elbow. Drain intact. Sensation normal. Sling in place Results - Labs Microbiology 11/24/18 08:21 Tissue - Elbow Gram Stain - Final 11/24/18 08:21 Tissue - Elbow Wound Culture - Final Assessment and Plan - Problem List (1) Closed olecranon fracture Code(s): S52.023A - Displaced fracture of olecranon process without intraarticular extension of unspecified ulna, initial encounter for closed fracture Status: Acute - Assessment and Plan Surgery: I&D of the right elbow with removal of hardware, extensive debridement and closure over drain: POD #3 PLAN: Culture: Staphylococcus Awaiting KARI. No evidence of osteomyelitis. Hardware has been removed. One more day of IV antibiotics per Dr. Gillespy, Ancef. Plan oral antibiotics depending on sensitivity of culture. If culture is negative, will discharge on doxycycline 100 mg twice daily for 10 days [place] as needed for pain. Daily dressing change with large bundle dressing. Patient tends to sit with elbows having pressure on them. Discharge home, possibly tomorrow depending on cultures. Home health care
[2018-11-28] MEDS: ceFAZolin Inj 1 GM in Sodium Chlor 0.9% Inj 100 ML IV.SIG SCH ×2 (01:57→08:22)
[2018-11-28 05:01] VITALS: O2SAT 95
[2018-11-28 08:21] VITALS: BP 131/88; PULSE 101; RESP 18; TEMP 98.4
[2018-11-28] MEDS: Metoprolol Tartrate 25 MG Tablet PO SCH (08:22)
[2018-11-28] MEDS: amLODIPine 5 MG Tablet PO SCH (08:22)
[2018-11-28] MEDS: Multivitamin/Minerals Therapeutic Tablet PO SCH (08:22)
[2018-11-28] MEDS: Pantoprazole Sodium 20 MG DR Tablet PO SCH (08:22)
[2018-11-28] MEDS: Senna/Docusate Sodium 8.6/50 MG Tablet PO SCH (08:22)
--- NOTE | 2018-11-28 10:23 | P.PNOP ---
Subjective Interval history: Culture has come back gram positive coag-negative cocci. One colony. Physical Exam Vital signs: Vital Signs 11/27/18 12:00 11/27/18 16:00 11/27/18 19:20 Temperature 97.6 F 97.6 F 97.6 F Pulse Rate 73 73 78 Respiratory Rate 16 16 17 Blood Pressure 130/76 128/75 130/73 Pulse Oximetry 93 L 95 99 11/27/18 23:24 11/28/18 03:42 11/28/18 08:17 Temperature 97.6 F 97.9 F 98.4 F Pulse Rate 65 62 101 H Respiratory Rate 16 16 18 Blood Pressure 130/81 134/69 131/88 Pulse Oximetry 93 L 95 95 Intake & Output 11/27/18 11/28/18 11/28/18 18:59 06:59 18:59 Intake Total 1040 / 1040 500 / 500 100 / 100 Output Total 500 / 500 Balance 1040 / 1040 0 / 0 100 / 100 Weight 63.8 kg Intake: IV 200 / 200 200 / 200 100 / 100 Ancef Inj 1 GM In NS Inj 100 ML 200 / 200 200 / 200 100 / 100 @ 200 mls/hr IV.SIG Q6H [facility] Rx #:[id number] Oral 840 / 840 300 / 300 Output: Urine 500 / 500 Other: # Voids 5 Date of Last Bowel Movement 11/26/18 11/26/18 11/27/18 # Bowel Movements 1 0 Results - Labs Microbiology 11/24/18 08:21 Tissue - Elbow Gram Stain - Final 11/24/18 08:21 Tissue - Elbow Wound Culture - Final Assessment and Plan - Problem List (1) Closed olecranon fracture Code(s): S52.023A - Displaced fracture of olecranon process without intraarticular extension of unspecified ulna, initial encounter for closed fracture Status: Acute - Assessment and Plan Surgery: I&D of the right elbow with removal of hardware, extensive debridement and closure over drain: POD #3 PLAN: Culture: Staphylococcus, coag-negative KARI not done No evidence of osteomyelitis. Hardware has been removed. discharged to home Plan oral antibiotics. Will discharge on doxycycline 100 mg twice daily for 10 days [place] as needed for pain. Daily dressing change with large bundle dressing. Patient tends to sit with elbows having pressure on them. Home health care
== END 2018-11-28 12:23 | disposition home health service (06) ==
LOC: HSDI 05:18 → HSDC 05:18 → EDSTATUS 07:30 → N06 12:25
PROVIDERS: ADMIT Orthopaedic Surgery Orthopaedic Surgery of the Spine; ATTEND Orthopaedic Surgery Orthopaedic Surgery of the Spine
PROC: [UNRECOGNIZED PROCEDURE] (2018-11-24 07:08)
CPT/HCPCS: 86403; 87015; 87070; 87102; 87116; 87176; 87205; 87206; 94150; 96361; 96365; 96366; G0378; J0131; J0690; J2250; J3010; J7120